=== PATIENT | female | born 1985 | race African-American/Black ===

== ENCOUNTER 2016-10-16 04:43 | Emergency (ER) | payer MEDICAID ==
[~2016-10-16] VITALS: Ht 170.2 cm; Wt 54.0 kg
[~2016-10-16 04:43] MED LIST: NPH,100I SQ; [UNRECOGNIZED DRUG - OTHER]
[2016-10-16 06:29] LABS: BASOPHILS % 0.7 % (0.0-2.0); DIFFERENTIAL COMMENT 0; EOSINOPHILS % 3.2 % (0.0-5.0); HEMATOCRIT. 33.3 % (36.0-48.0); HEMOGLOBIN. 10.3 g/dL (12.0-16.0); LYMPHOCYTES % 52.7 % (20.0-50.0); MEAN CORPUSCULAR HEMOGLOBIN 23.1 pg (28.0-32.0); MEAN CORPUSCULAR HGB CONC 30.8 g/dL (31.0-37.0); MEAN CORPUSCULAR VOLUME 75.1 fL (81.0-99.0); MEAN PLATELET VOLUME 8.2 fl (7.4-10.4); MONOCYTES % 7.2 % (2.0-8.0); NEUTROPHILS % 36.2 % (40.0-76.0); PLATELET 267 x1000/uL (130-400); RED BLOOD CELL COUNT 4.44 mill/uL (4.2-5.4); RED CELL DISTRIBUTION WIDTH 16.5 % (11.6-14.6); WHITE BLOOD COUNT 6.4 x1000/uL (4.5-11.0)
[2016-10-16 06:42] LABS: ALANINE AMINOTRANSFERASE 20 IU/L (13-61); ALBUMIN 2.1 g/dL (3.4-5.0); ANION GAP 11; CALCIUM 8.4 mg/dL (8.5-10.1); CARBON DIOXIDE 30 mEq/L (21-32); CHLORIDE 101 mEq/L (98-107); INDEX HEMOLYSI 1 (1-3); INDEX ICTERIC 1 (1-4); INDEX LIPEMIC 1 (1-3); LIPASE 185 IU/L (73-393); UREA NITROGEN BLOOD 16 mg/dL (7-21); eGFR > 60 mL/min (>60)
[2016-10-16] MEDS ORDERED: MORPHINE SULFATE 4 MG/ML CPJ (NOT FOR IM USE) IV STA (06:42)
[2016-10-16] MEDS ORDERED: SODIUM CHLORIDE 0.9% 1,000 ML IV ONE (06:42)
[2016-10-16] MEDS ORDERED: ONDANSETRON HCL 4MG/2ML VIAL IV STA (06:42)
[2016-10-16] MEDS ORDERED: METOCLOPRAMIDE HCL 10MG/2ML VIAL IV ONE (06:45)
[2016-10-16 07:07] LABS: CLARITY URINE CLEAR (CLEAR); COLOR URINE YELLOW (YELLOW); GLUCOSE URINE 3+ (NEGATIVE); KETONES URINE NEGATIVE (NEGATIVE); LEUKOCYTE ESTERASE URINE NEGATIVE (NEGATIVE); NITRITE URINE NEGATIVE (NEGATIVE); OCCULT BLOOD URINE TRACE (NEGATIVE); PH URINE 7.5 (4.5-8.0); PROTEIN URINE 3+ (NEGATIVE); SPECIFIC GRAVITY URINE 1.023 (1.005-1.030)
[2016-10-16 07:10] LABS: HCG SCREEN NEGATIVE; INR 1.1; PROTHROMBIN TIME 11.1 sec
[2016-10-16 07:28] LABS: BACTERIA URINE 2+; RBC URINE 0-2 /hpf (0-2); SQUAMOUS EPITHELIAL CELL URINE 1+ /lpf (RARE/1+); WBC URINE 0-2 /hpf (0-2)
[2016-10-16 07:35] LABS: *BARBITURATES SCREEN URINE NEGATIVE (NEGATIVE); *BENZODIAZEPINES SCREEN URINE NEGATIVE (NEGATIVE); *COCAINE SCREEN URINE NEGATIVE (NEGATIVE); ECSTASY MDMA SCREEN URINE NEGATIVE (NEGATIVE); METHADONE URINE SCREEN NEGATIVE (NEGATIVE); PHENCYCLIDINE URINE SCREEN NEGATIVE (NEGATIVE)
[2016-10-16 07:47] LABS: *AMPHETAMINES SCREEN URINE PRESUMTIVE POSITIVE (NEGATIVE)
[2016-10-16 07:48] LABS: CANNABINOID URINE SCREEN PRESUMTIVE POSITIVE (NEGATIVE); OPIATES URINE SCREEN PRESUMTIVE POSITIVE (NEGATIVE)
[2016-10-16 09:27] VITALS: BP 120/89
== END 2016-10-16 10:27 | disposition home or self-care (01) ==
LOC: ER 04:43
DX: T43.621A Poisoning by amphetamines, accidental (unintentional), initial encounter (principal); R10.13 Epigastric pain; E11.43 Type 2 diabetes mellitus with diabetic autonomic (poly)neuropathy; K31.84 Gastroparesis; R11.10 Vomiting, unspecified; F17.210 Nicotine dependence, cigarettes, uncomplicated; F15.10 Other stimulant abuse, uncomplicated; Y92.89 Other specified places as the place of occurrence of the external cause
CPT/HCPCS: 36415; 76705; 80053; 80305; 81001; 82962; 83690; 84703; 85025; 85610; 93005; 96361; 96374; 96375; 99285; G0482; J2270; J2765; J7030; Z7610

== ENCOUNTER 2017-03-10 10:08 | Emergency (ER) | payer MEDICAID ==
[~2017-03-10] VITALS: Ht 170.2 cm; Wt 84.0 kg
[2017-03-10] MEDS ORDERED: INSU3INS6 SUBCUT (10:27)
[2017-03-10] MEDS ORDERED: CARV6.2548 PO (10:27)
[2017-03-10] MEDS ORDERED: METO-293 PO (10:27)
[2017-03-10] MEDS ORDERED: PROT40 PO (10:27)
[2017-03-10] MEDS ORDERED: FURO-151 PO (10:29)
[2017-03-10] MEDS ORDERED: FAMOTIDINE 20MG/2ML VIAL IV STA (10:51)
[2017-03-10] MEDS ORDERED: SODIUM CHLORIDE 0.9% 500 ML IV ONE (10:51)
[2017-03-10] MEDS ORDERED: MAGNESIUM/ALUMINUM HYDROXIDE/SIMETHICONE 30ML UDC PO STA (10:51)
[2017-03-10] MEDS ORDERED: METOCLOPRAMIDE HCL 10MG/2ML VIAL IV STA (10:51)
[2017-03-10] MEDS ORDERED: DIPHENHYDRAMINE 50MG/ML VIAL IV ONE (11:00)
[2017-03-10 11:38] LABS: HEMATOCRIT. 39.5 % (36.0-48.0); HEMOGLOBIN. 12.6 g/dL (12.0-16.0); MEAN CORPUSCULAR HEMOGLOBIN 24.3 pg (28.0-32.0); MEAN CORPUSCULAR VOLUME 75.9 fL (81.0-99.0); MEAN PLATELET VOLUME 8.7 fl (7.4-10.4); PLATELET 261 x1000/uL (130-400); RED BLOOD CELL COUNT 5.21 mill/uL (4.2-5.4)
[2017-03-10 11:40] LABS: PROTHROMBIN TIME 10.5 sec (9.4-11.6)
[2017-03-10 11:50] LABS: CARBON DIOXIDE 28 mEq/L (21-32); CHLORIDE 99 mEq/L (98-107); ETHANOL BLOOD < 10 mg/dL
[2017-03-10 12:15] LABS: CLARITY URINE TURBID (CLEAR); COLOR URINE YELLOW (YELLOW); GLUCOSE URINE 3+ (NEGATIVE); KETONES URINE NEGATIVE (NEGATIVE); LEUKOCYTE ESTERASE URINE NEGATIVE (NEGATIVE); NITRITE URINE NEGATIVE (NEGATIVE); OCCULT BLOOD URINE TRACE (NEGATIVE); PH URINE 7.5 (4.5-8.0); PROTEIN URINE 3+ (NEGATIVE); SPECIFIC GRAVITY URINE 1.021 (1.005-1.030)
[2017-03-10 12:23] LABS: PLATELET ESTIMATE NORMAL
[2017-03-10 12:34] LABS: *BARBITURATES SCREEN URINE NEGATIVE (NEGATIVE); *COCAINE SCREEN URINE NEGATIVE (NEGATIVE); METHADONE URINE SCREEN NEGATIVE (NEGATIVE); OPIATES URINE SCREEN NEGATIVE (NEGATIVE); PHENCYCLIDINE URINE SCREEN NEGATIVE (NEGATIVE)
[2017-03-10 12:35] LABS: *AMPHETAMINES SCREEN URINE PRESUMTIVE POSITIVE (NEGATIVE); *BENZODIAZEPINES SCREEN URINE PRESUMTIVE POSITIVE (NEGATIVE); CANNABINOID URINE SCREEN PRESUMTIVE POSITIVE (NEGATIVE)
[2017-03-10] MEDS ORDERED: LORAZEPAM 2MG/ML CPJ IV ONE (14:00)
[2017-03-10] MEDS ORDERED: MORPHINE SULFATE 4 MG/ML CPJ (NOT FOR IM USE) IV ONE (14:00)
[2017-03-10] MEDS ORDERED: DICYCLOMINE HCL 10MG/ML 2ML AMP IM ONE (14:00)
[2017-03-10] MEDS ORDERED: SODIUM CHLORIDE 0.9% 1,000 ML IV ONE (15:15)
[2017-03-10 16:30] VITALS: BP 158/104
== END 2017-03-10 17:00 | disposition home or self-care (01) ==
LOC: ER 12:13
DX: E11.43 Type 2 diabetes mellitus with diabetic autonomic (poly)neuropathy (principal); E11.65 Type 2 diabetes mellitus with hyperglycemia; F15.10 Other stimulant abuse, uncomplicated; K31.84 Gastroparesis; F12.10 Cannabis abuse, uncomplicated; I50.9 Heart failure, unspecified; R00.0 Tachycardia, unspecified; F17.210 Nicotine dependence, cigarettes, uncomplicated; E88.09 Other disorders of plasma-protein metabolism, not elsewhere classified; Z79.4 Long term (current) use of insulin; Z20.6 Contact with and (suspected) exposure to human immunodeficiency virus [HIV]
CPT/HCPCS: 36415; 80053; 80305; 81001; 83690; 83880; 85025; 85610; 93005; 96372; 96374; 96375; 99285; G0482; J0500; J1200; J2060; J2270; J2765; J3490; J7030; Z7610

== ENCOUNTER 2017-03-12 09:06 | Inpatient (IN) | payer MEDICAID ==
[~2017-03-12] VITALS: Ht 170.2 cm; Wt 49.9 kg
[~2017-03-12 09:06] MED LIST changes: +CARV6.2548 PO; +FURO-151 PO; +INSU3INS6 SUBCUT; +METO-293 PO; +PROT40 PO
[2017-03-12] MEDS ORDERED: SODIUM CHLORIDE 0.9% 1,000 ML IV ONE (09:45)
[2017-03-12] MEDS ORDERED: METOCLOPRAMIDE HCL 10MG/2ML VIAL IV ONE (09:45)
[2017-03-12] MEDS ORDERED: KETOROLAC 30MG/ML VIAL IV ONE (10:00)
[2017-03-12 10:02] LABS: HEMOGLOBIN. 12.1 g/dL (12.0-16.0); MEAN CORPUSCULAR HEMOGLOBIN 24.1 pg (28.0-32.0); MEAN PLATELET VOLUME 8.4 fl (7.4-10.4); PLATELET 247 x1000/uL (130-400); RED CELL DISTRIBUTION WIDTH 14.9 % (11.6-14.6)
[2017-03-12 10:13] LABS: CARBON DIOXIDE 22 mEq/L (21-32); CHLORIDE 102 mEq/L (98-107)
[2017-03-12 10:46] LABS: PLATELET ESTIMATE NORMAL
[2017-03-12 12:00] LABS: *BARBITURATES SCREEN URINE NEGATIVE (NEGATIVE); *COCAINE SCREEN URINE NEGATIVE (NEGATIVE); METHADONE URINE SCREEN NEGATIVE (NEGATIVE); PHENCYCLIDINE URINE SCREEN NEGATIVE (NEGATIVE)
[2017-03-12] MEDS ORDERED: MORPHINE SULFATE 4 MG/ML CPJ (NOT FOR IM USE) IV PRN (12:30)
[2017-03-12] MEDS ORDERED: ONDANSETRON HCL 4MG/2ML VIAL IV PRN (12:30)
[2017-03-12 12:45] LABS: *AMPHETAMINES SCREEN URINE PRESUMTIVE POSITIVE (NEGATIVE); *BENZODIAZEPINES SCREEN URINE PRESUMTIVE POSITIVE (NEGATIVE); CANNABINOID URINE SCREEN PRESUMTIVE POSITIVE (NEGATIVE); OPIATES URINE SCREEN PRESUMTIVE POSITIVE (NEGATIVE)
[2017-03-12 12:53] LABS: EOSINOPHILS % 0.6 % (0.0-5.0); HEMOGLOBIN. 12.2 g/dL (12.0-16.0); MEAN CORPUSCULAR HEMOGLOBIN 24.4 pg (28.0-32.0); MEAN CORPUSCULAR VOLUME 75.8 fL (81.0-99.0); MEAN PLATELET VOLUME 8.4 fl (7.4-10.4); MONOCYTES % 11.2 % (2.0-8.0); NEUTROPHILS % 40.2 % (40.0-76.0); PLATELET 216 x1000/uL (130-400); RED BLOOD CELL COUNT 5.02 mill/uL (4.2-5.4); RED CELL DISTRIBUTION WIDTH 15.2 % (11.6-14.6)
[2017-03-12 14:46] VITALS: BP 171/112
[2017-03-12 14:52] VITALS: BP 171/112
[2017-03-12] MEDS ORDERED: ACETAMINOPHEN 325MG TABLET PO PRN (15:15)
[2017-03-12] MEDS ORDERED: IPRATROPIUM/ALBUTEROL 0.5-3(2.5)MG/3ML NEB INH PRN (15:15)
[2017-03-12] MEDS ORDERED: DIPHENHYDRAMINE 50MG/ML VIAL IV PRN (15:15)
[2017-03-12] MEDS ORDERED: CLONIDINE 0.1MG TABLET PO PRN (15:15)
[2017-03-12] MEDS ORDERED: HYDROCODONE/ACETAMINOPHEN 5/325MG TABLET PO PRN (15:15)
[2017-03-12] MEDS: MORPHINE SULFATE 2 MG/ML CPJ (NOT FOR IM USE) IV PRN ×2 (15:19→20:05)
[2017-03-12] MEDS: PANTOPRAZOLE SODIUM 40 MG/VIAL IV SCH (15:19)
[2017-03-12] MEDS ORDERED: DEXTROSE 50% WATER 50ML SYRINGE IV PRN (16:00)
[2017-03-12] MEDS: METOCLOPRAMIDE HCL 10MG TABLET PO SCH (16:22)
[2017-03-12] MEDS: SODIUM CHLORIDE 0.9% 1,000 ML IV SCH (16:22)
[2017-03-12] MEDS: BLOOD SUGAR DIAGNOSTIC STRIP TEST SCH ×2 (16:29→20:10)
[2017-03-12] MEDS: INSULIN LISPRO 100 UNITS/ML SUBCUT SCH ×2 (16:50→20:11)
[2017-03-12 17:36] LABS: CLARITY URINE TURBID (CLEAR); COLOR URINE YELLOW (YELLOW); GLUCOSE URINE 2+ (NEGATIVE); KETONES URINE 1+ (NEGATIVE); LEUKOCYTE ESTERASE URINE NEGATIVE (NEGATIVE); NITRITE URINE NEGATIVE (NEGATIVE); OCCULT BLOOD URINE 1+ (NEGATIVE); PROTEIN URINE 4+ (NEGATIVE); SPECIFIC GRAVITY URINE 1.028 (1.005-1.030)
[2017-03-12 20:00] VITALS: BP 150/90
[2017-03-12] MEDS: ONDANSETRON HCL 4MG/2ML VIAL IV PRN (21:27)
[2017-03-13] VITALS: BP 130/80
[2017-03-13] MEDS: MORPHINE SULFATE 2 MG/ML CPJ (NOT FOR IM USE) IV PRN ×6 (00:48→22:37)
[2017-03-13 04:00] VITALS: BP 154/64
[2017-03-13] MEDS: ONDANSETRON HCL 4MG/2ML VIAL IV PRN ×2 (05:20→17:11)
[2017-03-13] MEDS: BLOOD SUGAR DIAGNOSTIC STRIP TEST SCH ×4 (06:33→21:00)
[2017-03-13] MEDS: INSULIN LISPRO 100 UNITS/ML SUBCUT SCH ×4 (06:33→23:03)
[2017-03-13 07:06] LABS: CARBON DIOXIDE 20 mEq/L (21-32); CHLORIDE 102 mEq/L (98-107); HDL CHOLESTEROL 52 mg/dL (40-59); LDL CHOLESTEROL 194 mg/dL (5-100)
[2017-03-13 07:32] LABS: BASOPHILS % 0.7 % (0.0-2.0); EOSINOPHILS % 2.9 % (0.0-5.0); HEMATOCRIT. 41.7 % (36.0-48.0); HEMOGLOBIN. 12.9 g/dL (12.0-16.0); LYMPHOCYTES % 51.7 % (20.0-50.0); MEAN CORPUSCULAR HEMOGLOBIN 24.7 pg (28.0-32.0); MEAN CORPUSCULAR VOLUME 79.9 fL (81.0-99.0); MEAN PLATELET VOLUME 8.4 fl (7.4-10.4); MONOCYTES % 10.3 % (2.0-8.0); NEUTROPHILS % 34.4 % (40.0-76.0); PLATELET 199 x1000/uL (130-400); RED BLOOD CELL COUNT 5.22 mill/uL (4.2-5.4); RED CELL DISTRIBUTION WIDTH 15.2 % (11.6-14.6)
[2017-03-13 08:00] VITALS: BP 131/85
[2017-03-13] MEDS: FUROSEMIDE 40MG TABLET PO SCH (08:13)
[2017-03-13] MEDS: METOCLOPRAMIDE HCL 10MG TABLET PO SCH ×3 (08:13→17:11)
[2017-03-13] MEDS: SODIUM CHLORIDE 0.9% 1,000 ML IV SCH (08:13)
[2017-03-13] MEDS: PANTOPRAZOLE SODIUM 40 MG/VIAL IV SCH (08:15)
[2017-03-13] MEDS ORDERED: CARVEDILOL 6.25 MG TABLET PO SCH (09:00)
[2017-03-13 11:53] VITALS: BP 119/73
[2017-03-13] MEDS ORDERED: MORPHINE SULFATE 4 MG/ML CPJ (NOT FOR IM USE) IV PRN (13:25)
[2017-03-13 16:00] VITALS: BP 115/78
[2017-03-13 20:22] LABS: UCG SCREEN NEGATIVE
[2017-03-13] MEDS ORDERED: ATORVASTATIN CALCIUM 20MG TABLET PO SCH (21:00)
[2017-03-14 03:55] VITALS: BP 103/60
[2017-03-14] MEDS: MORPHINE SULFATE 2 MG/ML CPJ (NOT FOR IM USE) IV PRN ×2 (03:56→08:37)
[2017-03-14] MEDS: BLOOD SUGAR DIAGNOSTIC STRIP TEST SCH ×2 (06:36→12:10)
[2017-03-14] MEDS: INSULIN LISPRO 100 UNITS/ML SUBCUT SCH ×2 (06:44→13:48)
[2017-03-14 07:57] LABS: CARBON DIOXIDE 24 mEq/L (21-32); CHLORIDE 101 mEq/L (98-107)
[2017-03-14 08:00] VITALS: BP 102/74
[2017-03-14 08:01] LABS: BASOPHILS % 0.6 % (0.0-2.0); EOSINOPHILS % 4.2 % (0.0-5.0); HEMATOCRIT. 33.6 % (36.0-48.0); HEMOGLOBIN. 11.1 g/dL (12.0-16.0); LYMPHOCYTES % 53.9 % (20.0-50.0); MEAN CORPUSCULAR VOLUME 75.7 fL (81.0-99.0); MEAN PLATELET VOLUME 8.9 fl (7.4-10.4); MONOCYTES % 9.2 % (2.0-8.0); NEUTROPHILS % 32.1 % (40.0-76.0); PLATELET 181 x1000/uL (130-400); RED BLOOD CELL COUNT 4.44 mill/uL (4.2-5.4); RED CELL DISTRIBUTION WIDTH 14.4 % (11.6-14.6)
[2017-03-14] MEDS: PANTOPRAZOLE SODIUM 40 MG/VIAL IV SCH (08:31)
[2017-03-14] MEDS: METOCLOPRAMIDE HCL 10MG TABLET PO SCH ×2 (08:31→13:48)
[2017-03-14] MEDS: FUROSEMIDE 40MG TABLET PO SCH (08:31)
[2017-03-14 13:54] VITALS: BP 97/62
== END 2017-03-14 14:20 | disposition home or self-care (01) ==
LOC: ER 09:12 → 8WST 13:50 → ENRESERV 13:56
PROVIDERS: ADMIT Internal Medicine; ATTEND Internal Medicine
DX: K81.9 Cholecystitis, unspecified (principal); K31.84 Gastroparesis; E44.0 Moderate protein-calorie malnutrition; E11.43 Type 2 diabetes mellitus with diabetic autonomic (poly)neuropathy; E11.65 Type 2 diabetes mellitus with hyperglycemia; K21.9 Gastro-esophageal reflux disease without esophagitis; F17.200 Nicotine dependence, unspecified, uncomplicated; I25.10 Atherosclerotic heart disease of native coronary artery without angina pectoris; K80.20 Calculus of gallbladder without cholecystitis without obstruction; F12.90 Cannabis use, unspecified, uncomplicated; E78.5 Hyperlipidemia, unspecified; Z79.4 Long term (current) use of insulin; Z83.3 Family history of diabetes mellitus; Z82.49 Family history of ischemic heart disease and other diseases of the circulatory system; Z68.1 Body mass index [BMI] 19.9 or less, adult
CPT/HCPCS: 36415; 74176; 76705; 80048; 80053; 80061; 80305; 81001; 81025; 82962; 83690; 85025; 87040; 87086; 96361; 96374; 96375; 99285; C1893; C9113; J1815; J1885; J2270; J2405; J2765; J7030; J8597

== ENCOUNTER 2017-03-31 22:40 | Emergency (ER) | payer MEDICAID ==
[~2017-03-31] VITALS: Ht 170.2 cm; Wt 54.0 kg
[2017-03-31] MEDS ORDERED: KETOROLAC 30MG/ML VIAL IV STA (23:15)
[2017-03-31] MEDS ORDERED: ONDANSETRON HCL 4MG/2ML VIAL IV STA (23:15)
[2017-03-31] MEDS ORDERED: SODIUM CHLORIDE 0.9% 1,000 ML IV ONE (23:15)
[2017-03-31] MEDS ORDERED: CAPSAICIN 0.025% CREAM 60GM TOP PRN (23:15)
[2017-03-31] MEDS ORDERED: CAPSAICIN 0.075% CREAM 60GM TOP PRN (23:30)
[2017-03-31 23:38] LABS: CLARITY URINE CLEAR (CLEAR); COLOR URINE YELLOW (YELLOW); GLUCOSE URINE 3+ (NEGATIVE); KETONES URINE 1+ (NEGATIVE); LEUKOCYTE ESTERASE URINE NEGATIVE (NEGATIVE); NITRITE URINE NEGATIVE (NEGATIVE); OCCULT BLOOD URINE 3+ (NEGATIVE); PROTEIN URINE 4+ (NEGATIVE); SPECIFIC GRAVITY URINE 1.026 (1.005-1.030)
[2017-03-31 23:51] LABS: BASOPHILS % 0.8 % (0.0-2.0); EOSINOPHILS % 1.4 % (0.0-5.0); HEMATOCRIT. 39.1 % (36.0-48.0); HEMOGLOBIN. 12.5 g/dL (12.0-16.0); LYMPHOCYTES % 48.9 % (20.0-50.0); MEAN CORPUSCULAR HEMOGLOBIN 24.4 pg (28.0-32.0); MEAN CORPUSCULAR VOLUME 76.3 fL (81.0-99.0); MEAN PLATELET VOLUME 8.7 fl (7.4-10.4); MONOCYTES % 5.1 % (2.0-8.0); NEUTROPHILS % 43.8 % (40.0-76.0); PLATELET 257 x1000/uL (130-400); RED BLOOD CELL COUNT 5.13 mill/uL (4.2-5.4); RED CELL DISTRIBUTION WIDTH 14.1 % (11.6-14.6)
[2017-03-31 23:58] LABS: CHLORIDE 104 mEq/L (98-107)
[2017-03-31 23:59] LABS: PROTHROMBIN TIME 10.7 sec (9.4-11.6)
[2017-04-01] MEDS ORDERED: LORAZEPAM 2MG/ML CPJ IV ONE
[2017-04-01 00:07] LABS: CARBON DIOXIDE 25 mEq/L (21-32)
[2017-04-01 00:14] LABS: *BARBITURATES SCREEN URINE NEGATIVE (NEGATIVE); *BENZODIAZEPINES SCREEN URINE NEGATIVE (NEGATIVE); *COCAINE SCREEN URINE NEGATIVE (NEGATIVE); METHADONE URINE SCREEN NEGATIVE (NEGATIVE); OPIATES URINE SCREEN NEGATIVE (NEGATIVE); PHENCYCLIDINE URINE SCREEN NEGATIVE (NEGATIVE)
[2017-04-01 00:19] LABS: *AMPHETAMINES SCREEN URINE PRESUMTIVE POSITIVE (NEGATIVE); CANNABINOID URINE SCREEN PRESUMTIVE POSITIVE (NEGATIVE)
[2017-04-01] MEDS ORDERED: MORPHINE SULFATE 4 MG/ML CPJ (NOT FOR IM USE) IV ONE (01:15)
[2017-04-01 05:30] VITALS: BP 157/101
[2017-04-09] MEDS ORDERED: SODIUM CHLORIDE 0.9% 1,000 ML IV ONE (15:04)
[2017-04-09] MEDS ORDERED: ONDANSETRON HCL 4MG/2ML VIAL IV STA (15:04)
[2017-04-09] MEDS ORDERED: MORPHINE SULFATE 4 MG/ML CPJ (NOT FOR IM USE) IV NR (15:04)
== END 2017-04-01 06:00 | disposition home or self-care (01) ==
LOC: ER 22:40
DX: R10.33 Periumbilical pain (principal); E11.65 Type 2 diabetes mellitus with hyperglycemia; J45.909 Unspecified asthma, uncomplicated; F17.210 Nicotine dependence, cigarettes, uncomplicated; Z79.4 Long term (current) use of insulin; Z20.6 Contact with and (suspected) exposure to human immunodeficiency virus [HIV]
CPT/HCPCS: 36415; 74176; 80053; 80305; 81001; 81025; 82962; 83690; 85025; 85610; 96361; 96374; 96375; 99285; J1885; J2060; J2270; J2405; J7030; Z7610

== ENCOUNTER 2017-04-09 14:19 | Inpatient (IN) | payer MEDICAID ==
[~2017-04-09] VITALS: Ht 170.2 cm; Wt 56.7 kg
[2017-04-09] MEDS ORDERED: ONDANSETRON HCL 4MG/2ML VIAL IV STA (15:22)
[2017-04-09] MEDS ORDERED: SODIUM CHLORIDE 0.9% 1,000 ML IV ONE ×2 (15:22→22:15)
[2017-04-09] MEDS ORDERED: MORPHINE SULFATE 4 MG/ML CPJ (NOT FOR IM USE) IV STA (15:22)
[2017-04-09 16:18] LABS: BASOPHILS % 0.8 % (0.0-2.0); EOSINOPHILS % 0.6 % (0.0-5.0); HEMATOCRIT. 41.1 % (36.0-48.0); HEMOGLOBIN. 13.2 g/dL (12.0-16.0); LYMPHOCYTES % 35.6 % (20.0-50.0); MEAN CORPUSCULAR HEMOGLOBIN 24.2 pg (28.0-32.0); MEAN CORPUSCULAR VOLUME 75.3 fL (81.0-99.0); MEAN PLATELET VOLUME 8.8 fl (7.4-10.4); MONOCYTES % 6.2 % (2.0-8.0); NEUTROPHILS % 56.8 % (40.0-76.0); PLATELET 236 x1000/uL (130-400); RED BLOOD CELL COUNT 5.46 mill/uL (4.2-5.4); RED CELL DISTRIBUTION WIDTH 14.1 % (11.6-14.6)
[2017-04-09 16:22] LABS: CHLORIDE 99 mEq/L (98-107)
[2017-04-09 16:28] LABS: HCG SCREEN NEGATIVE
[2017-04-09 16:30] LABS: CARBON DIOXIDE 24 mEq/L (21-32)
[2017-04-09] MEDS ORDERED: MORPHINE SULFATE 4 MG/ML CPJ (NOT FOR IM USE) IV NR (18:00)
[2017-04-09] MEDS ORDERED: MORPHINE SULFATE 2 MG/ML CPJ (NOT FOR IM USE) IV ONE (18:00)
[2017-04-09] MEDS ORDERED: LORAZEPAM 2MG/ML CPJ IV ONE (18:00)
[2017-04-09 18:59] LABS: CLARITY URINE CLOUDY (CLEAR); COLOR URINE YELLOW (YELLOW); GLUCOSE URINE 3+ (NEGATIVE); KETONES URINE 2+ (NEGATIVE); LEUKOCYTE ESTERASE URINE NEGATIVE (NEGATIVE); NITRITE URINE NEGATIVE (NEGATIVE); OCCULT BLOOD URINE 2+ (NEGATIVE); PH URINE 5.5 (4.5-8.0); PROTEIN URINE 4+ (NEGATIVE); SPECIFIC GRAVITY URINE 1.037 (1.005-1.030)
[2017-04-09 19:15] LABS: *BARBITURATES SCREEN URINE NEGATIVE (NEGATIVE); *BENZODIAZEPINES SCREEN URINE NEGATIVE (NEGATIVE); *COCAINE SCREEN URINE NEGATIVE (NEGATIVE); METHADONE URINE SCREEN NEGATIVE (NEGATIVE); PHENCYCLIDINE URINE SCREEN NEGATIVE (NEGATIVE)
[2017-04-09 19:16] LABS: *AMPHETAMINES SCREEN URINE PRESUMTIVE POSITIVE (NEGATIVE); CANNABINOID URINE SCREEN PRESUMTIVE POSITIVE (NEGATIVE); OPIATES URINE SCREEN PRESUMTIVE POSITIVE (NEGATIVE)
[2017-04-09] MEDS ORDERED: DEXTROSE 50% WATER 50ML SYRINGE IV PRN (21:30)
[2017-04-09] MEDS ORDERED: ONDANSETRON HCL 4MG/2ML VIAL IV PRN (22:15)
[2017-04-09] MEDS ORDERED: METOPROLOL TARTRATE 25MG TABLET PO ONE (22:15)
[2017-04-09 22:44] LABS: TROPONIN I < 0.02 ng/mL (0.00-0.04)
[2017-04-09 22:45] LABS: CREATINE KINASE MB FRACTION 1.8 ng/mL (0.5-3.6)
[2017-04-10 03:00] VITALS: BP 136/96
[2017-04-10 04:00] VITALS: BP 136/96
[2017-04-10] MEDS ORDERED: CLONIDINE 0.1MG TABLET PO PRN (06:30)
[2017-04-10] MEDS: BLOOD SUGAR DIAGNOSTIC STRIP TEST SCH ×4 (06:57→21:00)
[2017-04-10] MEDS: INSULIN LISPRO 100 UNITS/ML SUBCUT SCH ×4 (07:50→22:28)
[2017-04-10 08:00] VITALS: BP 132/89
[2017-04-10 09:23] LABS: BASOPHILS % 0.8 % (0.0-2.0); EOSINOPHILS % 2.6 % (0.0-5.0); HEMATOCRIT. 39.9 % (36.0-48.0); HEMOGLOBIN. 12.9 g/dL (12.0-16.0); MEAN CORPUSCULAR HEMOGLOBIN 24.6 pg (28.0-32.0); MEAN CORPUSCULAR VOLUME 75.9 fL (81.0-99.0); MEAN PLATELET VOLUME 8.6 fl (7.4-10.4); MONOCYTES % 8.6 % (2.0-8.0); PLATELET 220 x1000/uL (130-400); RED BLOOD CELL COUNT 5.26 mill/uL (4.2-5.4); RED CELL DISTRIBUTION WIDTH 13.9 % (11.6-14.6)
[2017-04-10 09:42] LABS: CARBON DIOXIDE 27 mEq/L (21-32); CHLORIDE 100 mEq/L (98-107); CREATINE KINASE MB FRACTION 1.8 ng/mL (0.5-3.6); TROPONIN I < 0.02 ng/mL (0.00-0.04)
[2017-04-10] MEDS: MORPHINE SULFATE 4 MG/ML CPJ (NOT FOR IM USE) IV PRN ×3 (11:17→22:17)
[2017-04-10] MEDS: SODIUM CHLORIDE 0.9% 1,000 ML IV SCH (11:22)
[2017-04-10 12:00] VITALS: BP 130/85
[2017-04-10 16:00] VITALS: BP 123/79
[2017-04-10] MEDS ORDERED: MAGNESIUM 1 G PREMIX 100 ML IV NR (16:30)
[2017-04-10] MEDS: METOCLOPRAMIDE HCL 10MG/2ML VIAL IV SCH (18:00)
[2017-04-10] MEDS ORDERED: METOCLOPRAMIDE HCL 10MG TABLET PO PRN (19:00)
[2017-04-10] MEDS ORDERED: NON FORMULARY PATIENT HOME MED EA XX SCH (19:30)
[2017-04-10 20:00] VITALS: BP 123/81
[2017-04-10] MEDS ORDERED: INSULIN DETEMIR UD 100 UNITS/ML SYR SUBCUT SCH (22:00)
[2017-04-10] MEDS: FUROSEMIDE 20MG TABLET PO SCH (22:16)
[2017-04-10] MEDS: CARVEDILOL 3.125 MG TABLET PO SCH (22:16)
[2017-04-11] VITALS: BP 127/83
[2017-04-11] MEDS: SODIUM CHLORIDE 0.9% 1,000 ML IV SCH ×2 (01:11→12:42)
[2017-04-11] MEDS: MORPHINE SULFATE 4 MG/ML CPJ (NOT FOR IM USE) IV PRN (02:44)
[2017-04-11 04:00] VITALS: BP 118/82
[2017-04-11] MEDS ORDERED: IBUPROFEN 400MG TABLET PO PRN (07:15)
[2017-04-11] MEDS ORDERED: PANTOPRAZOLE 40MG DR TABLET PO SCH (07:20)
[2017-04-11] MEDS: BLOOD SUGAR DIAGNOSTIC STRIP TEST SCH ×3 (07:40→17:07)
[2017-04-11] MEDS: FUROSEMIDE 20MG TABLET PO SCH ×2 (07:40→17:09)
[2017-04-11 08:00] VITALS: BP 114/77
[2017-04-11] MEDS ORDERED: ACETAMINOPHEN 650MG/20.3ML UDC PO PRN (08:15)
[2017-04-11] MEDS: CARVEDILOL 3.125 MG TABLET PO SCH ×2 (08:25→17:09)
[2017-04-11] MEDS: INSULIN LISPRO 100 UNITS/ML SUBCUT SCH ×3 (08:29→17:11)
[2017-04-11 10:45] LABS: BASOPHILS % 0.9 % (0.0-2.0); EOSINOPHILS % 4.5 % (0.0-5.0); HEMATOCRIT. 38.7 % (36.0-48.0); HEMOGLOBIN. 12.5 g/dL (12.0-16.0); LYMPHOCYTES % 45.4 % (20.0-50.0); MEAN CORPUSCULAR HEMOGLOBIN 24.4 pg (28.0-32.0); MEAN CORPUSCULAR VOLUME 75.6 fL (81.0-99.0); MEAN PLATELET VOLUME 9.1 fl (7.4-10.4); MONOCYTES % 6.2 % (2.0-8.0); PLATELET 217 x1000/uL (130-400); RED BLOOD CELL COUNT 5.12 mill/uL (4.2-5.4)
[2017-04-11] MEDS: HYDROCODONE/ACETAMINOPHEN 5/325MG TABLET PO PRN ×2 (11:10→15:08)
[2017-04-11] MEDS: METOCLOPRAMIDE HCL 10MG/2ML VIAL IV SCH ×2 (11:13→17:12)
[2017-04-11 11:16] LABS: CARBON DIOXIDE 28 mEq/L (21-32); CHLORIDE 95 mEq/L (98-107)
[2017-04-11 12:00] VITALS: BP 98/61
[2017-04-11] MEDS ORDERED: MAGNESIUM OXIDE 400MG TABLET PO NR (15:45)
[2017-04-11] MEDS ORDERED: MAGNESIUM 1 G PREMIX 100 ML IV ONE (15:45)
[2017-04-11 16:00] VITALS: BP 113/76
[2017-04-11 17:15] VITALS: BP 113/76
== END 2017-04-11 18:02 | disposition home or self-care (01) ==
LOC: ER 14:19 → 6EST 18:44 → ENRESERV 19:39 → CANRESERV 19:39 → ENRESERV 04-10 01:26
PROVIDERS: ADMIT Internal Medicine; ATTEND Internal Medicine
DX: K80.20 Calculus of gallbladder without cholecystitis without obstruction (principal); E13.00 Other specified diabetes mellitus with hyperosmolarity without nonketotic hyperglycemic-hyperosmolar coma (NKHHC); E83.42 Hypomagnesemia; I10 Essential (primary) hypertension; E11.9 Type 2 diabetes mellitus without complications; J45.909 Unspecified asthma, uncomplicated; R00.0 Tachycardia, unspecified; F19.10 Other psychoactive substance abuse, uncomplicated; Z79.4 Long term (current) use of insulin; Z79.899 Other long term (current) drug therapy; E44.1 Mild protein-calorie malnutrition
CPT/HCPCS: 36415; 76705; 80048; 80053; 80305; 81001; 82553; 82962; 83690; 83735; 84484; 84703; 85025; 93005; 93970; 96361; 96374; 96375; 96376; 99285; C1893; J1815; J2060; J2270; J2405; J3475; J7030; J8597

== ENCOUNTER 2017-06-09 09:29 | Emergency (ER) | payer MEDICAID ==
[~2017-06-09] VITALS: Ht 172.7 cm; Wt 53.0 kg
[~2017-06-09 09:29] MED LIST changes: +ALBU18HF2 IH; +ASPI-1159 PO; +ATOR20TA PO; -CARV6.2548 PO; +COR3 PO; +LISI10TA5 PO; +OMEP20CA10 PO; +PANT40TA4 PO; -PROT40 PO; +TRAM50TA94 PO
[2017-06-09] MEDS ORDERED: MORPHINE SULFATE 4 MG/ML CPJ (NOT FOR IM USE) IV STA (09:50)
[2017-06-09] MEDS ORDERED: PANTOPRAZOLE SODIUM 40 MG/VIAL IV STA (09:50)
[2017-06-09] MEDS ORDERED: METOCLOPRAMIDE HCL 10MG/2ML VIAL IV STA (09:50)
[2017-06-09] MEDS ORDERED: SODIUM CHLORIDE 0.9% 1,000 ML IV ONE (09:50)
[2017-06-09 10:14] LABS: BASOPHILS % 1.2 % (0.0-2.0); EOSINOPHILS % 1.4 % (0.0-5.0); HEMATOCRIT. 37.4 % (36.0-48.0); HEMOGLOBIN. 11.5 g/dL (12.0-16.0); LYMPHOCYTES % 40.3 % (20.0-50.0); MEAN CORPUSCULAR HEMOGLOBIN 23.4 pg (28.0-32.0); MEAN CORPUSCULAR VOLUME 76.1 fL (81.0-99.0); MEAN PLATELET VOLUME 8.5 fl (7.4-10.4); MONOCYTES % 5.5 % (2.0-8.0); NEUTROPHILS % 51.6 % (40.0-76.0); PLATELET 288 x1000/uL (130-400); RED BLOOD CELL COUNT 4.91 mill/uL (4.2-5.4); RED CELL DISTRIBUTION WIDTH 14.5 % (11.6-14.6)
[2017-06-09] MEDS ORDERED: MORPHINE SULFATE 10 MG/ML CPJ IV SCH (10:15)
[2017-06-09 10:21] LABS: PROTHROMBIN TIME 10.6 sec (9.4-11.6)
[2017-06-09 10:25] LABS: CLARITY URINE CLOUDY (CLEAR); COLOR URINE YELLOW (YELLOW); KETONES URINE 1+ (NEGATIVE); LEUKOCYTE ESTERASE URINE NEGATIVE (NEGATIVE); NITRITE URINE NEGATIVE (NEGATIVE); OCCULT BLOOD URINE 1+ (NEGATIVE); PROTEIN URINE 4+ (NEGATIVE); SPECIFIC GRAVITY URINE 1.028 (1.005-1.030)
[2017-06-09 10:34] LABS: CARBON DIOXIDE 23 mEq/L (21-32); CHLORIDE 103 mEq/L (98-107); ETHANOL BLOOD < 10 mg/dL; TROPONIN I < 0.02 ng/mL (0.00-0.04)
[2017-06-09 10:41] LABS: *BARBITURATES SCREEN URINE NEGATIVE (NEGATIVE); *BENZODIAZEPINES SCREEN URINE NEGATIVE (NEGATIVE); *COCAINE SCREEN URINE NEGATIVE (NEGATIVE); METHADONE URINE SCREEN NEGATIVE (NEGATIVE); PHENCYCLIDINE URINE SCREEN NEGATIVE (NEGATIVE)
[2017-06-09 10:52] LABS: *AMPHETAMINES SCREEN URINE PRESUMTIVE POSITIVE (NEGATIVE); CANNABINOID URINE SCREEN PRESUMTIVE POSITIVE (NEGATIVE); OPIATES URINE SCREEN PRESUMTIVE POSITIVE (NEGATIVE)
[2017-06-09 12:27] VITALS: BP 118/69
== END 2017-06-09 12:35 | disposition home or self-care (01) ==
LOC: ER 09:34
DX: E11.43 Type 2 diabetes mellitus with diabetic autonomic (poly)neuropathy (principal); E11.65 Type 2 diabetes mellitus with hyperglycemia; K31.84 Gastroparesis; J45.909 Unspecified asthma, uncomplicated; R00.0 Tachycardia, unspecified; F15.10 Other stimulant abuse, uncomplicated; Z79.4 Long term (current) use of insulin; Z20.6 Contact with and (suspected) exposure to human immunodeficiency virus [HIV]
CPT/HCPCS: 36415; 71010; 76700; 80053; 80305; 81001; 81025; 83605; 83690; 83880; 84484; 85025; 85610; 93005; 96361; 96374; 96375; 99285; C9113; G0482; J2270; J2765; J7030; Z7610

== ENCOUNTER 2017-09-25 08:55 | Emergency (ER) | payer MEDICAID ==
[~2017-09-25] VITALS: Ht 160 cm; Wt 59.2 kg
[2017-09-25] MEDS ORDERED: ONDANSETRON HCL 4MG/2ML VIAL IV STA (09:27)
[2017-09-25] MEDS ORDERED: SODIUM CHLORIDE 0.9% 1,000 ML IV ONE (09:27)
[2017-09-25] MEDS ORDERED: MORPHINE SULFATE 4 MG/ML CPJ (NOT FOR IM USE) IV STA (09:27)
[2017-09-25 09:38] LABS: CLARITY URINE CLEAR (CLEAR); COLOR URINE YELLOW (YELLOW); KETONES URINE NEGATIVE (NEGATIVE); LEUKOCYTE ESTERASE URINE NEGATIVE (NEGATIVE); NITRITE URINE NEGATIVE (NEGATIVE); OCCULT BLOOD URINE TRACE (NEGATIVE); PH URINE 7.5 (4.5-8.0); PROTEIN URINE 4+ (NEGATIVE); SPECIFIC GRAVITY URINE 1.024 (1.005-1.030); UROBILINOGEN URINE 0.2 E.U./dL (0.2-1.0)
[2017-09-25 09:46] LABS: BASOPHILS % 1.3 % (0.0-2.0); HEMATOCRIT. 34.9 % (36.0-48.0); HEMOGLOBIN. 10.9 g/dL (12.0-16.0); LYMPHOCYTES % 45.5 % (20.0-50.0); MEAN CORPUSCULAR HEMOGLOBIN 21.8 pg (28.0-32.0); MEAN CORPUSCULAR VOLUME 70.2 fL (81.0-99.0); MEAN PLATELET VOLUME 8.6 fl (7.4-10.4); MONOCYTES % 9.5 % (2.0-8.0); NEUTROPHILS % 39.7 % (40.0-76.0); PLATELET 201 x1000/uL (130-400); RED BLOOD CELL COUNT 4.97 mill/uL (4.2-5.4)
[2017-09-25 09:58] LABS: CHLORIDE 104 mEq/L (98-107)
[2017-09-25 10:12] LABS: HCG SCREEN NEGATIVE
[2017-09-25 11:16] VITALS: BP 143/98
== END 2017-09-25 11:59 | disposition home or self-care (01) ==
LOC: ER 08:55
DX: R10.13 Epigastric pain (principal); R11.2 Nausea with vomiting, unspecified; E11.65 Type 2 diabetes mellitus with hyperglycemia; K21.9 Gastro-esophageal reflux disease without esophagitis; Z79.82 Long term (current) use of aspirin; Z79.4 Long term (current) use of insulin
CPT/HCPCS: 36415; 71045; 76700; 80053; 81003; 83690; 84703; 85025; 93005; 96361; 96374; 96375; 99285; J2270; J2405; J7030

== ENCOUNTER 2017-11-15 00:44 | Emergency (ER) | payer MEDICAID ==
[~2017-11-15] VITALS: Ht 170.2 cm; Wt 43.0 kg
[2017-11-15] MEDS ORDERED: FAMOTIDINE 20MG/2ML VIAL IV STA (02:45)
[2017-11-15] MEDS ORDERED: METOCLOPRAMIDE HCL 10MG/2ML VIAL IV STA (02:45)
[2017-11-15] MEDS ORDERED: HALOPERIDOL LACTATE 5MG/ML VIAL IM ONE (02:45)
[2017-11-15] MEDS ORDERED: ONDANSETRON 4MG ODT PO ONE (02:45)
[2017-11-15 03:22] LABS: INR 1.1; PROTHROMBIN TIME 11.3 sec (9.4-11.6)
[2017-11-15 03:32] LABS: CHLORIDE 105 mEq/L (98-107)
[2017-11-15 03:37] LABS: ETHANOL BLOOD < 10 mg/dL
[2017-11-15 03:42] LABS: BASOPHILS % 1.5 % (0.0-2.0); EOSINOPHILS % 4.5 % (0.0-5.0); HEMATOCRIT. 35.4 % (36.0-48.0); HEMOGLOBIN. 11.1 g/dL (12.0-16.0); LYMPHOCYTES % 46.3 % (20.0-50.0); MEAN CORPUSCULAR HEMOGLOBIN 21.8 pg (28.0-32.0); MEAN CORPUSCULAR VOLUME 69.5 fL (81.0-99.0); MEAN PLATELET VOLUME 8.7 fl (7.4-10.4); MONOCYTES % 7.1 % (2.0-8.0); NEUTROPHILS % 40.6 % (40.0-76.0); PLATELET 243 x1000/uL (130-400); RED BLOOD CELL COUNT 5.08 mill/uL (4.2-5.4); RED CELL DISTRIBUTION WIDTH 22.7 % (11.6-14.6)
[2017-11-15 05:45] VITALS: BP 156/98
== END 2017-11-15 06:03 | disposition home or self-care (01) ==
LOC: ER 00:44 → CANBEDREQ 08:07
DX: T40.7X5A Adverse effect of cannabis (derivatives), initial encounter (principal); I50.9 Heart failure, unspecified; K31.84 Gastroparesis; E11.43 Type 2 diabetes mellitus with diabetic autonomic (poly)neuropathy; Z87.891 Personal history of nicotine dependence; Z79.4 Long term (current) use of insulin; Z79.82 Long term (current) use of aspirin
CPT/HCPCS: 36415; 71045; 80053; 83690; 85025; 85610; 93005; 96372; 96374; 96375; 99285; G0482; J1630; J2765; J3490; Q0162; Z7610

== ENCOUNTER 2017-11-21 03:48 | Inpatient (IN) | payer MEDICAID ==
[~2017-11-21] VITALS: Ht 165.1 cm; Wt 49.9 kg
[2017-11-21] MEDS ORDERED: MAGNESIUM/ALUMINUM HYDROXIDE/SIMETHICONE 30ML UDC PO STA (04:05)
[2017-11-21] MEDS ORDERED: MORPHINE SULFATE 4 MG/ML CPJ (NOT FOR IM USE) IV STA (04:05)
[2017-11-21] MEDS ORDERED: FAMOTIDINE 20MG/2ML VIAL IV STA (04:05)
[2017-11-21] MEDS ORDERED: ONDANSETRON HCL 4MG/2ML VIAL IV STA (04:05)
[2017-11-21] MEDS ORDERED: SODIUM CHLORIDE 0.9% 1,000 ML IV ONE (04:05)
[2017-11-21 04:49] LABS: EOSINOPHILS % 4.7 % (0.0-5.0); HEMATOCRIT. 35.4 % (36.0-48.0); LYMPHOCYTES % 43.2 % (20.0-50.0); MEAN CORPUSCULAR HEMOGLOBIN 21.5 pg (28.0-32.0); MEAN PLATELET VOLUME 8.5 fl (7.4-10.4); MONOCYTES % 7.9 % (2.0-8.0); NEUTROPHILS % 43.2 % (40.0-76.0); PLATELET 282 x1000/uL (130-400); RED BLOOD CELL COUNT 5.13 mill/uL (4.2-5.4); RED CELL DISTRIBUTION WIDTH 23.1 % (11.6-14.6)
[2017-11-21 04:56] LABS: CHLORIDE 105 mEq/L (98-107)
[2017-11-21 05:00] LABS: ETHANOL BLOOD < 10 mg/dL
[2017-11-21 05:05] LABS: INR 1.1
[2017-11-21 06:01] LABS: CLARITY URINE CLEAR (CLEAR); COLOR URINE YELLOW (YELLOW); KETONES URINE TRACE (NEGATIVE); LEUKOCYTE ESTERASE URINE NEGATIVE (NEGATIVE); NITRITE URINE NEGATIVE (NEGATIVE); OCCULT BLOOD URINE NEGATIVE (NEGATIVE); PH URINE 7.5 (4.5-8.0); PROTEIN URINE 4+ (NEGATIVE); SPECIFIC GRAVITY URINE 1.025 (1.005-1.030); UROBILINOGEN URINE 0.2 E.U./dL (0.2-1.0)
[2017-11-21 06:20] LABS: *BARBITURATES SCREEN URINE NEGATIVE (NEGATIVE); *COCAINE SCREEN URINE NEGATIVE (NEGATIVE); METHADONE URINE SCREEN NEGATIVE (NEGATIVE)
[2017-11-21 06:21] LABS: *AMPHETAMINES SCREEN URINE PRESUMTIVE POSITIVE (NEGATIVE); *BENZODIAZEPINES SCREEN URINE PRESUMTIVE POSITIVE (NEGATIVE); CANNABINOID URINE SCREEN PRESUMTIVE POSITIVE (NEGATIVE); OPIATES URINE SCREEN PRESUMTIVE POSITIVE (NEGATIVE); PHENCYCLIDINE URINE SCREEN NEGATIVE (NEGATIVE)
[2017-11-21] MEDS ORDERED: MAGNESIUM/ALUMINUM HYDROXIDE/SIMETHICONE 30ML UDC PO PRN (08:45)
[2017-11-21] MEDS ORDERED: NA PHOS,M-B/NA PHOS,DI-BA ENEMA 118ML PR PRN (08:45)
[2017-11-21] MEDS ORDERED: ACETAMINOPHEN 325MG TABLET PO PRN (08:45)
[2017-11-21] MEDS ORDERED: LORAZEPAM 0.5MG TABLET PO PRN (08:45)
[2017-11-21] MEDS ORDERED: ONDANSETRON HCL 4MG/2ML VIAL IV PRN (08:45)
[2017-11-21] MEDS ORDERED: DEXTROSE 50% WATER 50ML SYRINGE IV PRN (08:45)
[2017-11-21] MEDS ORDERED: CLONIDINE 0.1MG TABLET PO PRN (08:45)
[2017-11-21] MEDS ORDERED: DIPHENHYDRAMINE 50MG/ML VIAL IV PRN (08:45)
[2017-11-21] MEDS ORDERED: NITROGLYCERIN 0.4MG TABLET SL SL PRN (08:45)
[2017-11-21] MEDS ORDERED: DOCUSATE SODIUM 100MG CAPSULE PO PRN (08:45)
[2017-11-21] MEDS ORDERED: IPRATROPIUM/ALBUTEROL 0.5-3(2.5)MG/3ML NEB INH PRN (08:45)
[2017-11-21] MEDS ORDERED: GUAIFENESIN 200MG/10ML SUGAR FREE UDC PO PRN (08:45)
[2017-11-21 09:30] VITALS: BP 153/115
[2017-11-21] MEDS: METOCLOPRAMIDE 10MG/10 ML UDC PO SCH ×2 (11:57→17:50)
[2017-11-21] MEDS: SUCRALFATE 1 G/10 ML UDC PO SCH ×3 (11:57→22:42)
[2017-11-21] MEDS: DILTIAZEM HCL 60MG TABLET PO SCH ×2 (11:57→17:51)
[2017-11-21] MEDS: FAMOTIDINE 20MG TABLET PO SCH ×2 (11:58→22:42)
[2017-11-21] MEDS: LISINOPRIL 20MG TABLET PO SCH ×2 (11:58→21:00)
[2017-11-21 12:00] VITALS: BP 148/104
[2017-11-21] MEDS: BLOOD SUGAR DIAGNOSTIC STRIP TEST SCH ×3 (12:00→21:00)
[2017-11-21] MEDS: INSULIN LISPRO 100 UNITS/ML SUBCUT SCH ×3 (12:15→21:00)
[2017-11-21] MEDS ORDERED: ALBUTEROL 6.7GM HFA INHALER INH SCH (12:15)
[2017-11-21] MEDS ORDERED: METOCLOPRAMIDE HCL 10MG TABLET PO SCH (12:15)
[2017-11-21] MEDS ORDERED: ELVI1TAB3 MT (12:20)
[2017-11-21] MEDS: ONDANSETRON 4MG ODT PO PRN ×2 (13:19→21:23)
[2017-11-21] MEDS: KETOROLAC 15MG/ML VIAL IV PRN ×2 (13:19→22:45)
[2017-11-21] MEDS: FUROSEMIDE 40MG TABLET PO SCH (13:27)
[2017-11-21] MEDS: CARVEDILOL 3.125 MG TABLET PO SCH ×2 (13:34→21:00)
[2017-11-21] MEDS: ASPIRIN 81MG EC TABLET PO SCH (13:34)
[2017-11-21 16:00] VITALS: BP 113/72
[2017-11-21 16:34] LABS: CREATINE KINASE MB FRACTION 3.7 ng/mL (0.5-3.6)
[2017-11-21] MEDS ORDERED: MEDICATION NOT ON FORMULARY EA (Insulin Glargine,Hum.rec.anlog (Lantus Solostar) 20 UNIT SUBCUT SCH (17:00)
[2017-11-21] MEDS ORDERED: NPH HUMAN INSULIN ISOPHANE 8 UNIT SQ SCH (17:00)
[2017-11-21 20:00] VITALS: BP 101/66
[2017-11-21] MEDS ORDERED: ATORVASTATIN CALCIUM 20MG TABLET PO SCH ×2 (21:00)
[2017-11-21] MEDS ORDERED: ZOLPIDEM TARTRATE 5MG TABLET PO PRN (21:00)
[2017-11-21] MEDS ORDERED: INSULIN GLARGINE UD 100 UNITS/ML SYR SUBCUT SCH ×2 (22:00→23:30)
[2017-11-22] VITALS: BP 107/72
[2017-11-22 01:56] LABS: CREATINE KINASE MB FRACTION 2.7 ng/mL (0.5-3.6)
[2017-11-22 04:00] VITALS: BP 106/67
[2017-11-22] MEDS: DILTIAZEM HCL 60MG TABLET PO SCH ×2 (06:00)
[2017-11-22] MEDS: KETOROLAC 15MG/ML VIAL IV PRN (06:21)
[2017-11-22] MEDS: BLOOD SUGAR DIAGNOSTIC STRIP TEST SCH (07:13)
[2017-11-22] MEDS: INSULIN LISPRO 100 UNITS/ML SUBCUT SCH (07:14)
[2017-11-22] MEDS: METOCLOPRAMIDE 10MG/10 ML UDC PO SCH (07:14)
[2017-11-22] MEDS: SUCRALFATE 1 G/10 ML UDC PO SCH (07:14)
[2017-11-22 07:45] VITALS: BP 128/104
[2017-11-22] MEDS: FAMOTIDINE 20MG TABLET PO SCH (08:38)
[2017-11-22] MEDS: ASPIRIN 81MG EC TABLET PO SCH (08:38)
[2017-11-22] MEDS: LISINOPRIL 20MG TABLET PO SCH (08:38)
[2017-11-22] MEDS: FUROSEMIDE 40MG TABLET PO SCH (08:38)
[2017-11-22] MEDS: CARVEDILOL 3.125 MG TABLET PO SCH (08:39)
[2017-11-22] MEDS ORDERED: OMEPRAZOLE 20MG CAPSULE EXTENDED RELEASE PO SCH (09:00)
[2017-11-22] MEDS ORDERED: LISINOPRIL 10MG TABLET PO SCH (09:00)
== END 2017-11-22 10:45 | disposition left against medical advice (07) | DRG 48 ==
LOC: ER 04:01 → 5WST 05:03 → ENRESERV 07:00
PROVIDERS: ADMIT Internal Medicine; ATTEND Internal Medicine
DX: E11.43 Type 2 diabetes mellitus with diabetic autonomic (poly)neuropathy (principal); E43 Unspecified severe protein-calorie malnutrition; I11.0 Hypertensive heart disease with heart failure; I50.9 Heart failure, unspecified; K31.84 Gastroparesis; E83.51 Hypocalcemia; J45.909 Unspecified asthma, uncomplicated; F19.10 Other psychoactive substance abuse, uncomplicated; E78.00 Pure hypercholesterolemia, unspecified; F17.210 Nicotine dependence, cigarettes, uncomplicated; D64.9 Anemia, unspecified; Z86.73 Personal history of transient ischemic attack (TIA), and cerebral infarction without residual deficits; Z79.899 Other long term (current) drug therapy; Z72.89 Other problems related to lifestyle; Z68.1 Body mass index [BMI] 19.9 or less, adult
CPT/HCPCS: 36415; 71045; 80053; 80061; 80305; 81003; 82550; 82553; 82962; 83036; 83605; 83690; 83880; 84484; 85025; 85610; 93005; G0482; J1200; J1815; J1885; J2270; J2405; J3490; J7030; J8597; Q0162

== ENCOUNTER 2018-01-08 06:49 | Emergency (ER) | payer MEDICAID ==
[~2018-01-08] VITALS: Ht 170.2 cm; Wt 68.0 kg
[~2018-01-08 06:49] MED LIST changes: +ELVI1TAB3 MT; -[UNRECOGNIZED DRUG - OTHER]
[2018-01-08] MEDS ORDERED: ONDANSETRON HCL 4MG/2ML VIAL IV STA (07:07)
[2018-01-08] MEDS ORDERED: MORPHINE SULFATE 4 MG/ML CPJ (NOT FOR IM USE) IV STA (07:07)
[2018-01-08] MEDS ORDERED: SODIUM CHLORIDE 0.9% 1,000 ML IV ONE (07:07)
[2018-01-08 07:25] LABS: HEMATOCRIT. 34.8 % (36.0-48.0); HEMOGLOBIN. 10.9 g/dL (12.0-16.0); MEAN CORPUSCULAR HEMOGLOBIN 21.7 pg (28.0-32.0); MEAN CORPUSCULAR VOLUME 69.1 fL (81.0-99.0); MEAN PLATELET VOLUME 8.8 fl (7.4-10.4); PLATELET 306 x1000/uL (130-400); RED BLOOD CELL COUNT 5.04 mill/uL (4.2-5.4)
[2018-01-08 07:31] LABS: CHLORIDE 105 mEq/L (98-107)
[2018-01-08 07:32] LABS: INR 1.1; PROTHROMBIN TIME 11.1 sec (9.4-11.6)
[2018-01-08 07:36] LABS: HCG SCREEN NEGATIVE
[2018-01-08 08:04] LABS: PLATELET ESTIMATE NORMAL
[2018-01-08 09:51] VITALS: BP 132/87
[2018-01-08 10:22] LABS: CLARITY URINE CLOUDY (CLEAR); COLOR URINE YELLOW (YELLOW); KETONES URINE TRACE (NEGATIVE); LEUKOCYTE ESTERASE URINE NEGATIVE (NEGATIVE); NITRITE URINE NEGATIVE (NEGATIVE); OCCULT BLOOD URINE TRACE (NEGATIVE); PROTEIN URINE 4+ (NEGATIVE); SPECIFIC GRAVITY URINE 1.031 (1.005-1.030)
== END 2018-01-08 10:18 | disposition home or self-care (01) ==
LOC: ER 06:49
DX: K31.84 Gastroparesis (principal); E11.65 Type 2 diabetes mellitus with hyperglycemia; J45.909 Unspecified asthma, uncomplicated; I50.9 Heart failure, unspecified; F17.200 Nicotine dependence, unspecified, uncomplicated; Z79.4 Long term (current) use of insulin; Z79.82 Long term (current) use of aspirin
CPT/HCPCS: 36415; 71045; 80053; 81003; 82962; 83690; 84703; 85025; 85610; 96361; 96374; 96375; 99285; J2270; J2405; J7030

== ENCOUNTER 2018-05-25 01:24 | Inpatient (IN) | payer MEDICAID ==
[~2018-05-25] VITALS: Ht 165.1 cm; Wt 59.9 kg
[2018-05-25] MEDS ORDERED: METOCLOPRAMIDE HCL 10MG/2ML VIAL IV STA (03:09)
[2018-05-25] MEDS ORDERED: MORPHINE SULFATE 4 MG/ML CPJ (NOT FOR IM USE) IV STA (03:09)
[2018-05-25] MEDS ORDERED: FAMOTIDINE 20MG/2ML VIAL IV STA (03:09)
[2018-05-25] MEDS ORDERED: SODIUM CHLORIDE 0.9% 1,000 ML IV ONE ×2 (03:09)
[2018-05-25 03:34] LABS: CLARITY URINE CLEAR (CLEAR); COLOR URINE YELLOW (YELLOW); KETONES URINE NEGATIVE (NEGATIVE); LEUKOCYTE ESTERASE URINE NEGATIVE (NEGATIVE); NITRITE URINE NEGATIVE (NEGATIVE); OCCULT BLOOD URINE NEGATIVE (NEGATIVE); PH URINE 7.5 (4.5-8.0); PROTEIN URINE 3+ (NEGATIVE)
[2018-05-25 03:47] LABS: EOSINOPHILS % 4.4 % (0.0-5.0); ETHANOL BLOOD < 10 mg/dL; HEMATOCRIT. 34.5 % (36.0-48.0); HEMOGLOBIN. 10.7 g/dL (12.0-16.0); MEAN CORPUSCULAR HEMOGLOBIN 23.2 pg (28.0-32.0); MEAN CORPUSCULAR VOLUME 74.7 fL (81.0-99.0); MONOCYTES % 6.4 % (2.0-8.0); NEUTROPHILS % 48.2 % (40.0-76.0); PLATELET 329 x1000/uL (130-400); RED BLOOD CELL COUNT 4.62 mill/uL (4.2-5.4); RED CELL DISTRIBUTION WIDTH 17.5 % (11.6-14.6)
[2018-05-25 03:49] LABS: *BARBITURATES SCREEN URINE NEGATIVE (NEGATIVE); *BENZODIAZEPINES SCREEN URINE NEGATIVE (NEGATIVE); *COCAINE SCREEN URINE NEGATIVE (NEGATIVE)
[2018-05-25 03:50] LABS: METHADONE URINE SCREEN NEGATIVE (NEGATIVE); OPIATES URINE SCREEN NEGATIVE (NEGATIVE); PHENCYCLIDINE URINE SCREEN NEGATIVE (NEGATIVE)
[2018-05-25 03:54] LABS: *AMPHETAMINES SCREEN URINE PRESUMTIVE POSITIVE (NEGATIVE); CANNABINOID URINE SCREEN PRESUMTIVE POSITIVE (NEGATIVE)
[2018-05-25 03:58] LABS: BETA HYDROXYBUTYRATE 0.4 mMol/L (0.0-0.3)
[2018-05-25 04:05] LABS: CHLORIDE 105 mEq/L (98-107)
[2018-05-25] MEDS ORDERED: DEXTROSE 50% WATER 50ML SYRINGE IV PRN (09:30)
[2018-05-25] MEDS: ONDANSETRON HCL 4MG/2ML INJ IV PRN ×2 (09:47→09:48)
[2018-05-25] MEDS: MORPHINE SULFATE 4 MG/ML CPJ (NOT FOR IM USE) IV PRN ×2 (09:48→19:54)
[2018-05-25 14:00] VITALS: BP 141/95
[2018-05-25] MEDS: INSULIN LISPRO 100 UNITS/ML SUBCUT SCH ×3 (15:00→21:51)
[2018-05-25] MEDS: BLOOD SUGAR DIAGNOSTIC STRIP TEST SCH ×3 (15:25→21:51)
[2018-05-25] MEDS: SODIUM CHLORIDE 0.45% 1,000 ML IV SCH (15:25)
[2018-05-25] MEDS: PANTOPRAZOLE SODIUM 40 MG/VIAL IV SCH (15:25)
[2018-05-25 16:00] VITALS: BP 135/91
[2018-05-25] MEDS: AMLODIPINE 5MG TABLET PO SCH (17:11)
[2018-05-25] MEDS: METOCLOPRAMIDE HCL 10MG/2ML VIAL IV SCH (17:11)
[2018-05-25 17:23] VITALS: BP 148/90
[2018-05-25 20:00] VITALS: BP 148/69
[2018-05-26] VITALS: BP 97/59
[2018-05-26] MEDS: METOCLOPRAMIDE HCL 10MG/2ML VIAL IV SCH ×4 (00:07→17:32)
[2018-05-26] MEDS: MORPHINE SULFATE 4 MG/ML CPJ (NOT FOR IM USE) IV PRN ×4 (01:49→20:44)
[2018-05-26 04:00] VITALS: BP 92/51
[2018-05-26] MEDS: SODIUM CHLORIDE 0.45% 1,000 ML IV SCH ×2 (04:08→17:22)
[2018-05-26 06:25] LABS: CHLORIDE 105 mEq/L (98-107)
[2018-05-26 06:28] LABS: BASOPHILS % 0.9 % (0.0-2.0); EOSINOPHILS % 6.3 % (0.0-5.0); HEMATOCRIT. 31.2 % (36.0-48.0); HEMOGLOBIN. 9.7 g/dL (12.0-16.0); LYMPHOCYTES % 52.4 % (20.0-50.0); MEAN CORPUSCULAR HEMOGLOBIN 23.5 pg (28.0-32.0); MEAN CORPUSCULAR VOLUME 75.5 fL (81.0-99.0); MEAN PLATELET VOLUME 8.4 fl (7.4-10.4); MONOCYTES % 8.8 % (2.0-8.0); NEUTROPHILS % 31.6 % (40.0-76.0); PLATELET 296 x1000/uL (130-400); RED BLOOD CELL COUNT 4.14 mill/uL (4.2-5.4)
[2018-05-26 06:36] LABS: TOTAL IRON BINDING CAPACITY 241 ug/dL (250-450)
[2018-05-26 08:00] VITALS: BP 130/59
[2018-05-26] MEDS: BLOOD SUGAR DIAGNOSTIC STRIP TEST SCH ×4 (08:16→21:00)
[2018-05-26] MEDS: PANTOPRAZOLE SODIUM 40 MG/VIAL IV SCH (08:17)
[2018-05-26] MEDS: AMLODIPINE 5MG TABLET PO SCH (08:21)
[2018-05-26] MEDS: INSULIN LISPRO 100 UNITS/ML SUBCUT SCH ×4 (08:26→22:44)
[2018-05-26 09:06] LABS: ABSOLUTE EOSINOPHILS 0.2 x10E3/uL (0.0-0.4); ABSOLUTE LYMPHOCYTES 2.8 x10E3/uL (0.7-3.1); ABSOLUTE MONOCYTES 0.5 x10E3/uL (0.1-0.9); ABSOLUTE NEUTROPHILS 2.2 x10E3/uL (1.4-7.0); BASOPHILS 1 % (Not Estab.); HEMATOCRIT 34.7 % (34.0-46.6); HEMATOLOGY COMMENT Note: (.); HEMOGLOBIN 10.5 g/dL (11.1-15.9); IMMATURE GRANULOCYTES 0 % (Not Estab.); LYMPHOCYTES 48 % (Not Estab.); MEAN CORPUSCULAR HEMOGLOBIN 22.4 pg (26.6-33.0); MEAN CORPUSCULAR HGB CONC. 30.3 g/dL (31.5-35.7); MEAN CORPUSCULAR VOLUME 74 fL (79-97); MONOCYTES 9 % (Not Estab.); NEUTROPHILS 38 % (Not Estab.); PLATELETS 335 x10E3/uL (150-379); RBC 4.68 x10E6/uL (3.77-5.28); RED CELL DISTRIBUTION WIDTH 16.6 % (12.3-15.4); WBC 5.8 x10E3/uL (3.4-10.8)
[2018-05-26 12:00] VITALS: BP 103/73
[2018-05-26 13:10] LABS: % CD 3 POS. LYMPHOCYTES 90.4 % (57.5-86.2); % CD 4 POS. LYMPHOCYTES 19.4 % (30.8-58.5); % CD 8 POS. LYMPH 69.9 % (12.0-35.5); ABSOLUTE CD 3 2531 /uL (622-2402); ABSOLUTE CD 4 HELPER 543 /uL (359-1519); ABSOLUTE CD 8 SUPPRESSOR 1957 /uL (109-897); CD4/CD8 RATIO 0.28 (0.92-3.72)
[2018-05-26 16:00] VITALS: BP 113/69
[2018-05-26 20:00] VITALS: BP 123/85
[2018-05-26] MEDS: ONDANSETRON HCL 4MG/2ML INJ IV PRN (20:43)
[2018-05-27] VITALS: BP 121/77
[2018-05-27] MEDS: METOCLOPRAMIDE HCL 10MG/2ML VIAL IV SCH ×2 (02:46→06:00)
[2018-05-27] MEDS: MORPHINE SULFATE 4 MG/ML CPJ (NOT FOR IM USE) IV PRN ×2 (03:56→08:54)
[2018-05-27 03:58] VITALS: BP 106/71
[2018-05-27 06:25] LABS: BASOPHILS % 0.7 % (0.0-2.0); HEMATOCRIT. 32.1 % (36.0-48.0); LYMPHOCYTES % 48.6 % (20.0-50.0); MEAN CORPUSCULAR VOLUME 73.5 fL (81.0-99.0); MEAN PLATELET VOLUME 8.8 fl (7.4-10.4); MONOCYTES % 8.8 % (2.0-8.0); NEUTROPHILS % 34.9 % (40.0-76.0); PLATELET 299 x1000/uL (130-400); RED BLOOD CELL COUNT 4.37 mill/uL (4.2-5.4); RED CELL DISTRIBUTION WIDTH 17.2 % (11.6-14.6)
[2018-05-27] MEDS: SODIUM CHLORIDE 0.45% 1,000 ML IV SCH (07:00)
[2018-05-27] MEDS: BLOOD SUGAR DIAGNOSTIC STRIP TEST SCH (07:20)
[2018-05-27] MEDS: INSULIN LISPRO 100 UNITS/ML SUBCUT SCH (07:50)
[2018-05-27 08:00] VITALS: BP 122/79
[2018-05-27 08:03] LABS: CHLORIDE 104 mEq/L (98-107)
[2018-05-27] MEDS: PANTOPRAZOLE SODIUM 40 MG/VIAL IV SCH (08:54)
[2018-05-27] MEDS: AMLODIPINE 5MG TABLET PO SCH (08:55)
[2018-05-27 10:06] VITALS: BP 122/79
== END 2018-05-27 11:05 | disposition home or self-care (01) | DRG 48 ==
LOC: ER 01:24 → 6EST 06:26 → EDBEDREQSVC 07:01 → EDBEDREQ 07:01
PROVIDERS: ADMIT Internal Medicine; ATTEND Internal Medicine
DX: E11.43 Type 2 diabetes mellitus with diabetic autonomic (poly)neuropathy (principal); E43 Unspecified severe protein-calorie malnutrition; N17.9 Acute kidney failure, unspecified; K80.00 Calculus of gallbladder with acute cholecystitis without obstruction; K31.84 Gastroparesis; I10 Essential (primary) hypertension; J45.909 Unspecified asthma, uncomplicated; K92.2 Gastrointestinal hemorrhage, unspecified; R16.0 Hepatomegaly, not elsewhere classified; E11.65 Type 2 diabetes mellitus with hyperglycemia; F17.210 Nicotine dependence, cigarettes, uncomplicated; Z86.73 Personal history of transient ischemic attack (TIA), and cerebral infarction without residual deficits; Z79.899 Other long term (current) drug therapy; Z79.4 Long term (current) use of insulin; Z79.84 Long term (current) use of oral hypoglycemic drugs
CPT/HCPCS: 36415; 74018; 76700; 80048; 80076; 80305; 81025; 82010; 82607; 82728; 82746; 82962; 83036; 83540; 83550; 83605; 86359; 86360; 96361; 96374; 96375; 99291; C9113; G0482; J1815; J2270; J2405; J2765; J3490; J7030

== ENCOUNTER 2018-12-04 08:49 | Emergency (ER) | payer MEDICAID ==
[~2018-12-04] VITALS: Ht 162.6 cm; Wt 64.0 kg
[~2018-12-04 08:49] MED LIST changes: -ASPI-1159 PO
[2018-12-04] MEDS ORDERED: SODIUM CHLORIDE 0.9% 1,000 ML IV ONE (09:30)
[2018-12-04] MEDS ORDERED: MORPHINE SULFATE 4 MG/ML CPJ (NOT FOR IM USE) IV STA (09:30)
[2018-12-04] MEDS ORDERED: ONDANSETRON HCL 4MG/2ML INJ IV STA (09:30)
[2018-12-04] MEDS ORDERED: METOCLOPRAMIDE HCL 10MG/2ML VIAL IV ONE (09:30)
[2018-12-04 09:38] LABS: CLARITY URINE CLOUDY (CLEAR); COLOR URINE YELLOW (YELLOW); KETONES URINE NEGATIVE (NEGATIVE); LEUKOCYTE ESTERASE URINE NEGATIVE (NEGATIVE); NITRITE URINE NEGATIVE (NEGATIVE); OCCULT BLOOD URINE 1+ (NEGATIVE); PH URINE 6.5 (4.5-8.0); PROTEIN URINE 4+ (NEGATIVE); SPECIFIC GRAVITY URINE 1.029 (1.005-1.030)
[2018-12-04 09:50] LABS: BASOPHILS % 0.8 % (0.0-2.0); EOSINOPHILS % 2.2 % (0.0-5.0); HEMATOCRIT. 34.6 % (36.0-48.0); HEMOGLOBIN. 10.7 g/dL (12.0-16.0); LYMPHOCYTES % 25.5 % (20.0-50.0); MEAN CORPUSCULAR HEMOGLOBIN 25.1 pg (28.0-32.0); MEAN CORPUSCULAR VOLUME 80.8 fL (81.0-99.0); MEAN PLATELET VOLUME 8.6 fl (7.4-10.4); MONOCYTES % 8.1 % (2.0-8.0); NEUTROPHILS % 63.4 % (40.0-76.0); PLATELET 309 x1000/uL (130-400); RED BLOOD CELL COUNT 4.28 mill/uL (4.2-5.4); RED CELL DISTRIBUTION WIDTH 14.5 % (11.6-14.6)
[2018-12-04 09:53] LABS: CHLORIDE 107 mEq/L (98-107)
[2018-12-04] MEDS: CEFTRIAXONE 1 G PREMIX 50 ML IV NR ×2 (11:56→13:30)
[2018-12-04] MEDS ORDERED: KETOROLAC 15MG/ML VIAL IV ONE (12:45)
[2018-12-04] MEDS ORDERED: KETOROLAC 30MG/ML VIAL IM ONE (13:15)
[2018-12-04 13:26] VITALS: BP 138/91
== END 2018-12-04 15:11 | disposition home or self-care (01) ==
LOC: ER 08:49
DX: E11.43 Type 2 diabetes mellitus with diabetic autonomic (poly)neuropathy (principal); K31.84 Gastroparesis; N39.0 Urinary tract infection, site not specified; J45.909 Unspecified asthma, uncomplicated; I50.9 Heart failure, unspecified; F17.200 Nicotine dependence, unspecified, uncomplicated; Z79.4 Long term (current) use of insulin; Z86.73 Personal history of transient ischemic attack (TIA), and cerebral infarction without residual deficits; Z79.899 Other long term (current) drug therapy
CPT/HCPCS: 36415; 80053; 81003; 81025; 85025; 87086; 96361; 96365; 96366; 96372; 96375; 99283; J0696; J1885; J2270; J2405; J2765; J7030; Z7610

== ENCOUNTER 2022-03-06 05:34 | Inpatient (IN) | payer MEDICAID ==
[~2022-03-06] VITALS: Ht 170.2 cm; Wt 61.2 kg
[~2022-03-06 05:34] MED LIST changes: +LISI10TA26 PO; -LISI10TA5 PO; -OMEP20CA10 PO; +OMEP20CA14 PO; -PANT40TA4 PO; +PANT40TA51 PO
[2022-03-06] MEDS ORDERED: KETOROLAC 30MG/ML VIAL IV ONE (05:45)
[2022-03-06] MEDS ORDERED: SODIUM CHLORIDE 0.9% 1,000 ML IV ONE (05:45)
[2022-03-06 06:11] LABS: BG BASE EXCESS -3.6 mmol/L (-2.0-2.0); BG DEOXYHEMOGLOBIN 3.7 % (0.0-5.0); BG FRACTION INSPIRED OXYGEN 21; BG HCO3 ACT 19.8 mmol/L (22.0-26.0); BG METHEMOGLOBIN 0.1 % (0.0-1.5); BG OXYGEN SATURATION 96.2 % (92.0-98.5); BG OXYHEMOGLOBIN 94.2 % (94.0-97.0); BG PCO2 31.2 mmHg (35.0-45.0); BG PH 7.421 (7.350-7.450); BG PO2 84.3 mmHg (75.0-100.0); BG SAMPLE SITE RIGHT RADIAL; BG TOTAL HEMOGLOBIN 13.7 g/dL (12.0-18.0); BG VENT MODE ROOM AIR
[2022-03-06 06:30] LABS: CHLORIDE 103 mEq/L (98-107)
[2022-03-06 06:31] LABS: BASOPHILS % 1.1 % (0.0-2.0); EOSINOPHILS % 0.3 % (0.0-5.0); HEMATOCRIT. 50.1 % (36.0-48.0); HEMOGLOBIN. 15.3 g/dL (12.0-16.0); LYMPHOCYTES % 29.5 % (20.0-50.0); MEAN CORPUSCULAR HEMOGLOBIN 27.4 pg (28.0-32.0); MEAN CORPUSCULAR VOLUME 89.9 fL (81.0-99.0); MONOCYTES % 13.5 % (2.0-8.0); NEUTROPHILS % 55.6 % (40.0-76.0); RED BLOOD CELL COUNT 5.57 mill/uL (4.2-5.4); RED CELL DISTRIBUTION WIDTH 16.2 % (11.6-14.6)
[2022-03-06 06:39] LABS: BETA HYDROXYBUTYRATE 0.3 mMol/L (0.0-0.3); ETHANOL BLOOD < 10 mg/dL
[2022-03-06] MEDS ORDERED: MORPHINE SULFATE 4 MG/ML CPJ (NOT FOR IM USE) IV ONE (07:15)
[2022-03-06 07:22] LABS: PLATELET 166 x1000/uL (130-400)
[2022-03-06] MEDS ORDERED: INSULIN REGULAR (HUMULIN R) 300UNITS/3ML VIAL IV ONE (08:45)
[2022-03-06 10:04] LABS: CLARITY URINE CLOUDY (CLEAR); COLOR URINE DARK YELLOW (YELLOW); KETONES URINE TRACE (NEGATIVE); LEUKOCYTE ESTERASE URINE NEGATIVE (NEGATIVE); NITRITE URINE NEGATIVE (NEGATIVE); OCCULT BLOOD URINE 2+ (NEGATIVE); PH URINE 6.5 (4.5-8.0); PROTEIN URINE 4+ (NEGATIVE); SPECIFIC GRAVITY URINE 1.045 (1.005-1.030)
[2022-03-06] MEDS ORDERED: TOPUD PO (11:27)
[2022-03-06] MEDS ORDERED: POLY17PO3 MT (11:27)
[2022-03-06 12:36] LABS: INR 1.1; PROTHROMBIN TIME 11.9 sec (9.6-11.0)
[2022-03-06 12:41] LABS: HCG SCREEN NEGATIVE
[2022-03-06] MEDS ORDERED: IPRATROPIUM/ALBUTEROL 0.5-3(2.5)MG/3ML NEB NEB PRN (16:00)
[2022-03-06] MEDS ORDERED: MAGNESIUM/ALUMINUM HYDROXIDE/SIMETHICONE 30ML UDC PO PRN (16:00)
[2022-03-06] MEDS ORDERED: DEXTROSE 50% WATER 50ML SYRINGE IV PRN (16:00)
[2022-03-06] MEDS ORDERED: ONDANSETRON HCL 4MG/2ML INJ IV PRN (16:00)
[2022-03-06] MEDS ORDERED: ACETAMINOPHEN 325MG TABLET PO PRN ×2 (16:00)
[2022-03-06] MEDS ORDERED: ZOLPIDEM TARTRATE 5MG TABLET PO PRN (16:00)
[2022-03-06] MEDS ORDERED: CLONIDINE 0.1MG TABLET PO PRN (16:00)
[2022-03-06] MEDS ORDERED: DOCUSATE SODIUM 100MG CAPSULE PO PRN (16:00)
[2022-03-06] MEDS ORDERED: KETOROLAC 30MG/ML VIAL IV PRN (16:00)
[2022-03-06] MEDS ORDERED: GUAIFENESIN 200MG/10ML SUGAR FREE UDC PO PRN (16:00)
[2022-03-06] MEDS ORDERED: METOLAZONE 10MG TABLET PO NR (17:00)
[2022-03-06] MEDS ORDERED: MINERAL OIL ENEMA 133ML PR NR (17:00)
[2022-03-06 17:21] VITALS: BP 140/92
[2022-03-06] MEDS: FUROSEMIDE 100MG/10ML VIAL IVP SCH (18:02)
[2022-03-06] MEDS: METOCLOPRAMIDE 10MG/10 ML UDC PO SCH ×2 (18:03→22:08)
[2022-03-06] MEDS: INSULIN LISPRO 100 UNITS/ML SUBCUT SCH ×2 (18:10→22:09)
[2022-03-06] MEDS: BLOOD SUGAR DIAGNOSTIC STRIP TEST SCH ×2 (18:11→21:45)
[2022-03-06 19:03] VITALS: BP 140/92
[2022-03-06] MEDS ORDERED: KETOROLAC 15MG/ML VIAL IV PRN (20:15)
[2022-03-06 20:23] LABS: VITAMIN B12 SERUM 945 pg/mL (211-911)
[2022-03-06 20:24] LABS: ETHANOL BLOOD < 10 mg/dL; HDL CHOLESTEROL 56 mg/dL (40-59); LDL CHOLESTEROL 128 mg/dL (5-100); T4 FREE 0.91 ng/dL (0.76-1.46); TOTAL IRON BINDING CAPACITY 242 ug/dL (250-450)
[2022-03-06 20:34] VITALS: BP 136/99
[2022-03-06 20:53] LABS: HEPATITIS B SURFACE ANTIGEN NEGATIVE
[2022-03-06] MEDS: INSULIN GLARGINE 100 UNITS/ML SUBCUT SCH ×2 (22:00→22:09)
[2022-03-06] MEDS: LACTULOSE 20G/30ML UDC PO SCH (22:08)
[2022-03-06 23:48] VITALS: BP 113/76
[2022-03-07 00:19] LABS: CREATINE KINASE MB FRACTION 4.3 ng/mL (0.5-3.6)
[2022-03-07] MEDS: FUROSEMIDE 100MG/10ML VIAL IVP SCH (04:58)
[2022-03-07] MEDS: LACTULOSE 20G/30ML UDC PO SCH (05:01)
[2022-03-07 06:22] LABS: *BARBITURATES SCREEN URINE NEGATIVE (NEGATIVE); *BENZODIAZEPINES SCREEN URINE NEGATIVE (NEGATIVE); *COCAINE SCREEN URINE NEGATIVE (NEGATIVE); CANNABINOID URINE SCREEN NEGATIVE (NEGATIVE); METHADONE URINE SCREEN NEGATIVE (NEGATIVE); PHENCYCLIDINE URINE SCREEN NEGATIVE (NEGATIVE)
[2022-03-07 06:25] LABS: *AMPHETAMINES SCREEN URINE PRESUMTIVE POSITIVE (NEGATIVE)
[2022-03-07 06:26] LABS: OPIATES URINE SCREEN PRESUMTIVE POSITIVE (NEGATIVE)
[2022-03-07] MEDS: METOCLOPRAMIDE 10MG/10 ML UDC PO SCH ×2 (06:49→12:32)
[2022-03-07] MEDS: BLOOD SUGAR DIAGNOSTIC STRIP TEST SCH ×2 (06:49→11:29)
[2022-03-07] MEDS: INSULIN LISPRO 100 UNITS/ML SUBCUT SCH ×2 (06:50→12:33)
[2022-03-07 08:00] VITALS: BP 150/98
[2022-03-07] MEDS ORDERED: FAMOTIDINE 20MG TABLET PO SCH (09:00)
[2022-03-07] MEDS ORDERED: PNEUMOCOCCAL 23-VAL P-SAC VAC 0.5 ML IM ONE (09:00)
[2022-03-07] MEDS ORDERED: SODIUM BICARBONATE 4% (2.4MEQ) 5ML VIAL IV ONE (10:13)
[2022-03-07 12:00] VITALS: BP 141/95
== END 2022-03-07 13:45 | disposition left against medical advice (07) | DRG 194 ==
LOC: ER 05:34 → 7WST 13:01 → EDBEDREQTM 13:05 → EDBEDREQ 13:05 → ENRESERV 14:02
PROVIDERS: ADMIT Internal Medicine; ATTEND Internal Medicine
PROC: 0W993ZZ Drainage of Right Pleural Cavity, Percutaneous Approach (ICD-10-PCS; principal; 2022-03-07)
DX: I11.0 Hypertensive heart disease with heart failure (principal); N17.0 Acute kidney failure with tubular necrosis; E11.43 Type 2 diabetes mellitus with diabetic autonomic (poly)neuropathy; I50.23 Acute on chronic systolic (congestive) heart failure; J90 Pleural effusion, not elsewhere classified; K31.84 Gastroparesis; I42.9 Cardiomyopathy, unspecified; Z28.310 Unvaccinated for COVID-19; J45.909 Unspecified asthma, uncomplicated; E78.5 Hyperlipidemia, unspecified; E11.65 Type 2 diabetes mellitus with hyperglycemia; Z20.822 Contact with and (suspected) exposure to COVID-19; F19.10 Other psychoactive substance abuse, uncomplicated; F15.10 Other stimulant abuse, uncomplicated; F11.10 Opioid abuse, uncomplicated; F17.210 Nicotine dependence, cigarettes, uncomplicated; Z53.29 Procedure and treatment not carried out because of patient's decision for other reasons; Z86.73 Personal history of transient ischemic attack (TIA), and cerebral infarction without residual deficits; Z79.899 Other long term (current) drug therapy
CPT/HCPCS: 32555; 36415; 36600; 71045; 74176; 76770; 80053; 80061; 80305; 80320; 81003; 82010; 82375; 82550; 82553; 82607; 82746; 82805; 82962; 83036; 83540; 83550; 83615; 83986; 84439; 84443; 84484; 84703; 85025; 86705; 86709; 86803; 87340; 87426; 88108; 93005; 93306; 93970; 99285; J1815; J1885; J1940; J2270; J3490; J7030; J8597; G0480

== ENCOUNTER 2023-02-03 02:18 | Inpatient (IN) | payer MEDICAID ==
[~2023-02-03] VITALS: Ht 167.6 cm; Wt 68.0 kg
[2023-02-03] VITALS (96 sets, daily range): BP systolic 40–184; BP diastolic 25–118; PULSE 35–140; RESP 4–116; TEMP 97.9–98.2; O2SAT 94
[~2023-02-03 02:18] MED LIST changes: +HYDR-4001 MT; +POLY17PO3 MT; +TOPUD PO; -TRAM50TA94 PO
[2023-02-03] MEDS ORDERED: DEXTROSE 50% WATER 50ML SYRINGE IV ONE (02:30)
[2023-02-03] MEDS ORDERED: SODIUM BICARBONATE 8.4% 1 MEQ/ML 50ML SYR IV ONE (03:00)
[2023-02-03] MEDS ORDERED: DEXTROSE 10% WATER 500 ML IV ONE ×2 (03:00→21:45)
[2023-02-03] MEDS ORDERED: NALOXONE HCL 1 MG/ML 2ML VIAL IV ONE (03:00)
[2023-02-03] MEDS ORDERED: VECURONIUM BROMIDE 10 MG/VIAL IV ONE (03:00)
[2023-02-03] MEDS ORDERED: ETOMIDATE 2MG/ML 10ML VIAL IV ONE (03:00)
[2023-02-03] MEDS ORDERED: CALCIUM CHLORIDE 1GM/10ML SYR IV ONE (03:00)
[2023-02-03 03:54] LABS: BASOPHILS % 0.5 % (0.0-2.0); EOSINOPHILS % 0.3 % (0.0-5.0); HEMATOCRIT. 35.1 % (36.0-48.0); LYMPHOCYTES % 18.9 % (20.0-50.0); MEAN CORPUSCULAR HEMOGLOBIN 29.2 pg (28.0-32.0); MEAN CORPUSCULAR VOLUME 92.9 fL (81.0-99.0); MEAN PLATELET VOLUME 9.4 fl (7.4-10.4); MONOCYTES % 7.7 % (2.0-8.0); NEUTROPHILS % 72.6 % (40.0-76.0); PLATELET 146 x1000/uL (130-400); RED BLOOD CELL COUNT 3.78 mill/uL (4.2-5.4); RED CELL DISTRIBUTION WIDTH 16.1 % (11.6-14.6)
[2023-02-03 04:08] LABS: CHLORIDE 101 mEq/L (98-107)
[2023-02-03] MEDS ORDERED: HYDRALAZINE 20MG/ML VIAL IV ONE (04:30)
[2023-02-03] MEDS ORDERED: NITROGLYCERIN 0.2MG/HR PATCH TOP ONE (04:30)
[2023-02-03] MEDS ORDERED: PROPOFOL 10MG/ML 100ML 100 ML IV SCH (04:45)
[2023-02-03] MEDS ORDERED: VANCOMYCIN 1G PREMIX 200 ML IV SCH (05:00)
[2023-02-03] MEDS ORDERED: PIPERACILLIN/TAZOBACTAM 3.375GM/50ML PREMIX IV NR (05:00)
[2023-02-03] MEDS ORDERED: DOCUSATE SODIUM 100MG CAPSULE PO PRN (06:30)
[2023-02-03] MEDS ORDERED: IPRATROPIUM/ALBUTEROL 0.5-3(2.5)MG/3ML NEB NEB PRN (06:30)
[2023-02-03] MEDS ORDERED: NITROGLYCERIN 0.4MG TABLET SL SL PRN (06:30)
[2023-02-03] MEDS ORDERED: DEXT 5%/LACTATED RINGERS 1,000 ML IV SCH (06:30)
[2023-02-03] MEDS ORDERED: ENOXAPARIN 40MG/0.4ML SYR SUBCUT SCH (06:30)
[2023-02-03] MEDS ORDERED: GUAIFENESIN 200MG/10ML SUGAR FREE UDC PO PRN (06:30)
[2023-02-03] MEDS ORDERED: NICARDIPINE 100 MG in SODIUM CHLORIDE 0.9% 60 ML IV PRN ×2 (06:30→06:45)
[2023-02-03] MEDS ORDERED: ONDANSETRON HCL 4MG/2ML INJ IV PRN (06:30)
[2023-02-03] MEDS ORDERED: MAGNESIUM/ALUMINUM HYDROXIDE/SIMETHICONE 30ML UDC PO PRN (06:30)
[2023-02-03] MEDS ORDERED: CLONIDINE 0.1MG TABLET PO PRN (06:30)
[2023-02-03] MEDS ORDERED: MEROPENEM 1,000 MG in SODIUM CHLORIDE 0.9% 100 ML IV SCH (06:30)
[2023-02-03] MEDS ORDERED: DEXTROSE 50% WATER 50ML SYRINGE IV PRN (06:30)
[2023-02-03] MEDS ORDERED: ACETAMINOPHEN 325MG TABLET PO PRN ×2 (06:30)
[2023-02-03 06:50] LABS: BG BASE EXCESS -6.3 mmol/L (-2.0-2.0); BG CARBOXYHEMOGLOBIN 0.9 % (0.5-1.5); BG DEOXYHEMOGLOBIN 3.4 % (0.0-5.0); BG FRACTION INSPIRED OXYGEN 70; BG HCO3 ACT 21.7 mmol/L (22.0-26.0); BG METHEMOGLOBIN 0.2 % (0.0-1.5); BG OXYGEN SATURATION 96.6 % (92.0-98.5); BG OXYHEMOGLOBIN 95.5 % (94.0-97.0); BG PCO2 53.9 mmHg (35.0-45.0); BG PH 7.222 (7.350-7.450); BG PO2 109.7 mmHg (75.0-100.0); BG SAMPLE SITE RIGHT BRACHIAL; BG VENT MODE VENT - AC
[2023-02-03] MEDS ORDERED: ENOXAPARIN 30MG/0.3ML SYR SUBCUT SCH (08:00)
[2023-02-03] MEDS ORDERED: VANCOMYCIN 1.5GM/250ML IVPB 250 ML IV SCH (08:00)
[2023-02-03] MEDS: INSULIN LISPRO 100 UNITS/ML SUBCUT SCH ×4 (08:20→21:00)
[2023-02-03 08:26] LABS: T4 FREE 1.28 ng/dL (0.76-1.46)
[2023-02-03] MEDS ORDERED: FENTANYL CITRATE/PF 2,500 MCG in SODIUM CHLORIDE 0.9% 200 ML IV PRN ×2 (08:30→08:45)
[2023-02-03] MEDS ORDERED: MIDAZOLAM HCL 100 MG in SODIUM CHLORIDE 0.9% 80 ML IV PRN ×2 (08:30→08:45)
[2023-02-03 08:47] LABS: FOLIC ACID (FOLATE) SERUM 17.7 ng/mL (>5.38)
[2023-02-03 08:59] LABS: BG BASE EXCESS -3.2 mmol/L (-2.0-2.0); BG CARBOXYHEMOGLOBIN 1.1 % (0.5-1.5); BG DEOXYHEMOGLOBIN 3.7 % (0.0-5.0); BG FRACTION INSPIRED OXYGEN 70; BG HCO3 ACT 21.5 mmol/L (22.0-26.0); BG METHEMOGLOBIN 0.3 % (0.0-1.5); BG OXYGEN SATURATION 96.2 % (92.0-98.5); BG OXYHEMOGLOBIN 94.9 % (94.0-97.0); BG PCO2 37.2 mmHg (35.0-45.0); BG PH 7.379 (7.350-7.450); BG PO2 90.4 mmHg (75.0-100.0); BG SAMPLE SITE RIGHT RADIAL; BG TOTAL HEMOGLOBIN 12.2 g/dL (12.0-18.0); BG TOTAL RESPIRATORY RATE 49 b/min; BG VENT MODE VENT - AC
[2023-02-03] MEDS ORDERED: MEROPENEM 500 MG in SODIUM CHLORIDE 0.9% 50 ML IV SCH (09:00)
[2023-02-03] MEDS ORDERED: ASPIRIN 325MG EC TABLET PO SCH (09:00)
[2023-02-03] MEDS ORDERED: PANTOPRAZOLE SODIUM 40 MG/VIAL IV SCH ×2 (09:00→17:00)
[2023-02-03] MEDS ORDERED: AMLODIPINE 10MG TABLET PO SCH (09:00)
[2023-02-03] MEDS: BLOOD SUGAR DIAGNOSTIC STRIP TEST SCH ×4 (09:31→21:56)
[2023-02-03] MEDS ORDERED: INSULIN GLARGINE 100 UNITS/ML SUBCUT SCH (10:00)
[2023-02-03] MEDS: METOPROLOL TARTRATE 25MG TABLET PO SCH ×2 (10:39→21:00)
[2023-02-03 11:44] LABS: HEPATITIS B SURFACE ANTIGEN NEGATIVE
[2023-02-03] MEDS: IPRATROPIUM/ALBUTEROL 0.5-3(2.5)MG/3ML NEB HHN SCH ×3 (12:00→20:13)
[2023-02-03] MEDS ORDERED: PIPERACILLIN/TAZOBACTAM 3.375 G in DEXTROSE 5% WATER 50 ML IV NR (12:00)
[2023-02-03] MEDS ORDERED: DEXT 5%/0.9% NACL 1,000 ML IV SCH (12:30)
[2023-02-03 12:32] LABS: CREATINE KINASE 201 IU/L (26-192); CREATINE KINASE MB FRACTION 7.7 ng/mL (0.5-3.6)
[2023-02-03] MEDS ORDERED: VANCOMYCIN 1,500 MG in DEXT 5% WATER 250 ML IV NR (13:00)
[2023-02-03 14:55] LABS: CLARITY URINE CLEAR (CLEAR); COLOR URINE DARK YELLOW (YELLOW); KETONES URINE TRACE (NEGATIVE); LEUKOCYTE ESTERASE URINE NEGATIVE (NEGATIVE); NITRITE URINE NEGATIVE (NEGATIVE); OCCULT BLOOD URINE 2+ (NEGATIVE); PH URINE 6.5 (4.5-8.0); PROTEIN URINE 4+ (NEGATIVE); SPECIFIC GRAVITY URINE 1.022 (1.005-1.030)
[2023-02-03 16:03] LABS: *BARBITURATES SCREEN URINE NEGATIVE (NEGATIVE); *BENZODIAZEPINES SCREEN URINE NEGATIVE (NEGATIVE); *COCAINE SCREEN URINE NEGATIVE (NEGATIVE); CANNABINOID URINE SCREEN NEGATIVE (NEGATIVE); METHADONE URINE SCREEN NEGATIVE (NEGATIVE); PHENCYCLIDINE URINE SCREEN NEGATIVE (NEGATIVE)
[2023-02-03 16:45] LABS: *AMPHETAMINES SCREEN URINE PRESUMTIVE POSITIVE (NEGATIVE); OPIATES URINE SCREEN PRESUMTIVE POSITIVE (NEGATIVE)
[2023-02-03] MEDS ORDERED: NOREPINEPHRINE 8 MG in DEXT 5% WATER 242 ML IV PRN (21:00)
[2023-02-03 21:12] LABS: BG BASE EXCESS -7.6 mmol/L (-2.0-2.0); BG CARBOXYHEMOGLOBIN 0.3 % (0.5-1.5); BG DEOXYHEMOGLOBIN 1.7 % (0.0-5.0); BG FRACTION INSPIRED OXYGEN 100; BG HCO3 ACT 22.1 mmol/L (22.0-26.0); BG METHEMOGLOBIN 0.3 % (0.0-1.5); BG OXYGEN SATURATION 98.3 % (92.0-98.5); BG OXYHEMOGLOBIN 97.7 % (94.0-97.0); BG PCO2 68.4 mmHg (35.0-45.0); BG PH 7.128 (7.350-7.450); BG PO2 177.5 mmHg (75.0-100.0); BG SAMPLE SITE RIGHT FEMORAL; BG TOTAL RESPIRATORY RATE 21 b/min; BG VENT MODE VENT - AC
[2023-02-03] MEDS ORDERED: EPINEPHRINE 10 MG in SODIUM CHLORIDE 0.9% 240 ML IV PRN ×2 (21:15→21:45)
[2023-02-03] MEDS ORDERED: NOREPINEPHRINE 32 MG in DEXT 5% WATER 218 ML IV PRN (22:00)
[2023-02-04] MEDS ORDERED: MEROPENEM 500MG in NORMAL SALINE 50ML IV SCH (09:00)
== END 2023-02-04 03:55 | DRG 720 ==
LOC: ER 02:18 → MICUSO 04:58 → EDBEDREQ 05:00
PROVIDERS: ADMIT Internal Medicine; ATTEND Internal Medicine
PROC: 5A1945Z Respiratory Ventilation, 24-96 Consecutive Hours (ICD-10-PCS; principal; 2023-02-03)
PROC: 5A12012 Performance of Cardiac Output, Single, Manual (ICD-10-PCS; 2023-02-03)
PROC: 0BH17EZ Insertion of Endotracheal Airway into Trachea, Via Natural or Artificial Opening (ICD-10-PCS; 2023-02-03)
PROC: 5A2204Z Restoration of Cardiac Rhythm, Single (ICD-10-PCS; 2023-02-03)
PROC: 02HV33Z Insertion of Infusion Device into Superior Vena Cava, Percutaneous Approach (ICD-10-PCS; 2023-02-03)
PROC: 5A1D70Z Performance of Urinary Filtration, Intermittent, Less than 6 Hours Per Day (ICD-10-PCS; 2023-02-03)
DX: A41.9 Sepsis, unspecified organism (principal); I46.9 Cardiac arrest, cause unspecified; J69.0 Pneumonitis due to inhalation of food and vomit; G92.8 Other toxic encephalopathy; J96.01 Acute respiratory failure with hypoxia; J96.02 Acute respiratory failure with hypercapnia; I13.2 Hypertensive heart and chronic kidney disease with heart failure and with stage 5 chronic kidney disease, or end stage renal disease; K92.2 Gastrointestinal hemorrhage, unspecified; I47.20 Ventricular tachycardia, unspecified; N18.6 End stage renal disease; D63.8 Anemia in other chronic diseases classified elsewhere; E11.649 Type 2 diabetes mellitus with hypoglycemia without coma; E87.1 Hypo-osmolality and hyponatremia; I49.01 Ventricular fibrillation; I24.8 Other forms of acute ischemic heart disease; T40.2X1A Poisoning by other opioids, accidental (unintentional), initial encounter; E11.65 Type 2 diabetes mellitus with hyperglycemia; R74.01 Elevation of levels of liver transaminase levels; J45.909 Unspecified asthma, uncomplicated; E11.42 Type 2 diabetes mellitus with diabetic polyneuropathy; E11.22 Type 2 diabetes mellitus with diabetic chronic kidney disease; E87.5 Hyperkalemia; I50.9 Heart failure, unspecified; S60.521A Blister (nonthermal) of right hand, initial encounter; X58.XXXA Exposure to other specified factors, initial encounter; Y93.89 Activity, other specified; Y99.8 Other external cause status; Z99.2 Dependence on renal dialysis; Z79.899 Other long term (current) drug therapy; Y92.89 Other specified places as the place of occurrence of the external cause
CPT/HCPCS: 31500; 36415; 36600; 71045; 71250; 80053; 80061; 80305; 80307; 81003; 82375; 82550; 82553; 82607; 82746; 82805; 82962; 83036; 83540; 83550; 83605; 83880; 84145; 84439; 84443; 84484; 85025; 86705; 86709; 86803; 87070; 87077; 87186; 87340; 90935; 92950; 93970; 94002; 94640; 99291; A6261; C9113; J0360; J1650; J1815; J2185; J2250; J2543; J2704; J3370; J3490; J7042; J7050; J7060